=== PATIENT | female | born 1965 | race Caucasian/White ===

== ENCOUNTER 2023-10-24 11:00 | Observation (INO) | payer OTHER ==
--- OUTSIDE RECORDS SUMMARY | 2023-10-24 11:05 | XMS REPORT | Continuity of Care Document ---
Author Name Unknown Address [address] [facility] [address] [place] [address] [facility] Address [address] [facility] [address] [place] [address] Care Team Providers Care Chemistry Technologist Name Role Phone FREDDY JORDAN Attending Clinician Unav ailMARTA Hanks Attending Clinician Unavailable MARCELLA LOZANO Attending Clinician Unavailable FAUSTO LEROY Attending Clinician Unavailable CONFERENCE, LDC Attending Clinician Unavailable LAB90 Attending Clinician Unavailable Jessi Hopper MD Attending Clinician [phone] MD PAULINE Attending Clinician Unavailab BENJAMIN Finch Attending Clinician Unavailable THERESE GILBERT Attending Clinician Unava ilable PL, TECH 1 Attending Clinician Unavailable PLABPA Attending Clinician Unavailable Jessi Hopper MD Admitting Clinician [phone] Payers Payer Name Policy Type Policy Number Effective Date Expirati on Date Source [employer] [facility] [employer] [place] 94 [place] 9 [id number] 2023 00:00:00 Problems Condition Name Condition Details Condition Category Status Onset Date Resolution Date Last Treatment Date Treating Clinician Comments Source Mild major depression Mild major depression Disease Active 10-01 00:00: 00 Tammy oneill DM type 2 with diabetic mixed hyperlipid emia (multi HCC) DM type 2 with diabetic mixed hyperlipid emia (multi HCC) Disease Active 10-01 00:00: 00 Tammy oneill Chronic respirator y failure with hypoxia and hypercapni a (multi HCC) Chronic respirator y failure with hypoxia and hypercapni a (multi HCC) Disease Active 10-01 00:00: 00 Tammy Higgins - Externa nino COPD exacerbati on COPD exacerbati on Disease Active 2022-09 00:00: 00 [facility] Morbid obesity with body mass index of 40.0-49.9 Morbid obesity with body mass index of 40.0-49.9 Disease Active 2022-09 00:00: 00 [facility] Mild major depression Mild major depression Disease Active 05-08 00:00: 00 Tammy Higgins - Externa nino Chronic obstructiv e pulmonary disease with acute exacerbati on (multi HCC) Chronic obstructiv e pulmonary disease with acute exacerbati on (multi HCC) Disease Active 04-17 00:00: 00 Tammy Higgins - Externa nino Insomnia Insomnia Disease Active 04-17 00:00: 00 Tammy Higgins - Externa nino Mild major depression Mild major depression Disease Active 01-29 00:00: 00 Tammy Higgins - Externa nino Immunocomp romised state (multi HCC) Immunocomp romised state (multi HCC) Disease Active 12-05 00:00: 00 Tammy Chilelold - Externa l Neuropathy of both feet - Not Controlled Neuropathy of both feet - Not Controlled Disease Active 12-05 00:00: 00 Tammy Higgins - Externa nino Mixed hyperlipid emia Mixed hyperlipid emia Disease Active 12-04 00:00: 00 Tammy Higgins - Externa nino Hx of colonic polyps Hx of colonic polyps Disease Active 12-04 00:00: 00 Tammy Higgins - Externa nino Encounter for immunizati on Encounter for immunizati on Disease Active 12-04 00:00: 00 Tammy Higgins - Externa nino BMI 40.0-44.9, adult BMI 40.0-44.9, adult Disease Active 12-04 00:00: 00 Tammy Bain Externa nino Prediabete s Prediabete s Disease Active 3-21 00:00: 00 Tammy Bain Externa l Dysuria Dysuria Disease Active 2015-09 00:00: 00 [facility] Dyspareuni a in female Dyspareuni a in female Disease Active 2015-09 00:00: 00 [facility] Screen for STD (sexually transmitte d disease) Screen for STD (sexually transmitte d disease) Disease Active 2015-09 00:00: 00 [facility] Allergies, Adverse Reactions, Alerts Allergy Name Allergy Type Status Severity Reaction(s) Onset Date Inactive Date Treating Clinician Comments Source Penicill ins Propensi ty to adverse reaction s Active Anaphylaxis 05-07 00:00: 00 Other reaction( s): Other (See Comments) Tammy Bain Externa l Penicill ins Propensi ty to adverse reaction s Active Anaphylaxis 05-07 00:00: 00 [facility] PENICILL INS Drug Class Active Anaphylaxis 05-07 00:00: 00 [facility] Social History Social Habit Start Date Stop Date Quantity Comments Source Gender identity Elsa Higgins - External History of tobacco use Cigarette Smoker [facility] 2023-07-27 00:00:00 2023-07-27 00:00:00 0 /d [facility] History of Social function 2023-07-27 00:00:00 2023-07-27 00:00:00 [facility] Tobacco Comment 2023-07-27 00:00:00 2023-07-27 00:00:[address] [facility] Cigarettes smoked current (pack per day) - Reported 2022-12-10 00:00:00 2022-12-10 00:00:00 Tammy Higgins - External Tobacco use and exposure 2022-12-10 00:00:00 2022-12-10 00:00:00 Smokeless tobacco non-user Tammy Hgigins - External Cigarette pack-years 2022-12-10 00:00:00 2022-12-10 00:00:00 Tammy Higgins - External Sex Assigned At 1965 00:00:00 1965 00:00:00 [facility] Smoking Status Start Date Stop Date Source Occasional tobacco smoker 2023-07-27 00:00:00 [facility] Ex-smoker 2022-12-10 00:00:00 2022-12-10 00:00:00 Tammy Bueno Medications Ordered Medication Name Filled Medication Name Start Date Stop Date Current Medication? Ordering Clinician Indication Dosage Frequency Signature (SIG) Comments Components Source Esomeprazol e Magnesium 40 MG oral Delayed Release Capsule 10-11 10:27: 56 Yes 40mg Take 1 capsule (40 mg total) by mouth every morning (before breakfast) . Tammy oneill Montelukast (SINGULAIR) 10 MG oral Tablet tablet 10-11 10:27: 56 Yes every 24 hours Tammy oneill Acetaminoph en-Codeine 300-30 MG oral Tablet 10-11 00:00: 00 Yes [id number] 1{tbl} Q.25D Take 1 tablet by mouth every 6 hours as needed for pain. Tammy oneill Duloxetine HCl [address] Particles 10-11 00:00: 00 Yes [id number] 60mg Take 2 capsules (60 mg total) by mouth daily. Tammy oneill Trazodone HCl 100 MG oral Tablet 10-11 00:00: 00 Yes [id number] 100mg Take 1 tablet (100 mg total) by mouth nightly. Tammy oneill Zolpidem Tartrate 5 MG oral Tablet 10-11 00:00: 00 Yes [id number] 5mg QD Take 1 tablet (5 mg total) by mouth nightly as needed for sleep. Tammy oneill Acetaminoph en-Codeine 300-30 MG oral Tablet 09-27 00:00: 00 10-11 00:00 :00 No [id number] 1{tbl} Q.25D Take 1 tablet by mouth every 6 hours as needed for pain. Tammy oneill hydroCHLORO thiazide 12.5 MG oral Capsule 09-19 00:00: 00 Yes [id number] 12.5mg Take 1 capsule (12.5 mg total) by mouth daily. Tammy oneill Lisinopril 5 MG oral Tablet 09-19 00:00: 00 Yes [id number] 5mg Take 1 tablet (5 mg total) by mouth daily. Tammy oneill Zolpidem Tartrate 5 MG oral Tablet 09-19 00:00: 00 10-11 00:00 :00 No [id number] 5mg QD Take 1 tablet (5 mg total) by mouth nightly as needed for sleep. Tammy oneill predniSONE (DELTASONE) 10 MG oral tablet 2022-09 00:00: 00 10-11 00:00 :00 No [id number] 10mg Take 1 tablet (10 mg total) by mouth daily. Tammy oneill Ketorolac Tromethamin e 10 MG oral Tablet 2022-09 00:00: 00 Yes [id number] 10mg Q.25D Take 1 tablet (10 mg total) by mouth every 6 hours as needed for pain. Tammy oneill Esomeprazol e Magnesium 40 MG oral Delayed Release Capsule 2022-09 11:05: 48 Yes 40mg Take 1 capsule (40 mg total) by mouth every morning (before breakfast) . Tammy oneill Montelukast (SINGULAIR) 10 MG oral Tablet tablet 2022-09 11:05: 48 Yes every 24 hours Tammy oneill Doxycycline Hyclate 100 MG oral Capsule 2022-09 00:00: 00 09-06 05:59 :00 Yes [id number] 100mg Take 1 capsule (100 mg total) by mouth 2 times daily for 7 days. Tammy oneill OZEMPIC (0.25 or 0.5 mg/dose) 2 mg/3 mL SQ Solution Pen-Injecto r 2022-09 00:00: 00 10-19 05:59 :00 Yes [id number] 3 .5mg Inject 0.5 mg into the skin once a week. Tammy oneill OZEMPIC (0.25 or 0.5 mg/dose) 2 mg/3 mL SQ Solution Pen-Injecto r 2022-09 00:00: 00 10-19 05:59 :00 Yes [id number] 3 .5mg Inject 0.5 mg into the skin once a week. Tammy oneill hydroCHLORO thiazide 25 MG oral Tablet 2022-09 11:19: 34 08-22 00:00 :00 No 25mg Take 1 tablet (25 mg total) by mouth every morning. Tammy oneill Esomeprazol e Magnesium 40 MG oral Delayed Release Capsule 2022-09 10:51: 41 Yes 40mg Take 1 capsule (40 mg total) by mouth every morning (before breakfast) . Tammy oneill Montelukast (SINGULAIR) 10 MG oral Tablet tablet 2022-09 10:51: 41 Yes every 24 hours Tammy oneill Duloxetine HCl [address] Particles 2022-09 00:00: 00 Yes [id number] 60mg Take 2 capsules (60 mg total) by mouth daily. Tammy oneill Gabapentin 600 MG oral Tablet 2022-09 00:00: 00 Yes [id number] 600mg Take 1 tablet (600 mg total) by mouth 3 times daily. Tammy oneill Metformin HCl 500 MG oral Tablet 2022-09 00:00: 00 Yes [id number] 3 500mg Take 1 tablet (500 mg total) by mouth daily (with breakfast) . Tammy oneill Ondansetron (ZOFRAN) 4 MG oral TABLET DISPERSIBLE 2022-09 00:00: 00 Yes [id number] 4mg Q.[id number] 3D Take 1 tablet (4 mg total) by mouth every 8 hours as needed for nausea. Tammy oneill Promethazin e HCl (PHENERGAN) 25 MG oral Tablet 2022-09 00:00: 00 Yes [id number] 25mg Q.25D Take 1 tablet (25 mg total) by mouth every 6 hours as needed. Tammy oneill Pseudoeph-B romphen-DM 30-2-10 MG/5ML oral Syrup 2022-09 00:00: 00 Yes [id number] 10mL Q.[id number] 3D Take 10 mL by mouth 3 times daily as needed TAKE 10 ML BY MOUTH 3 TIMES A DAY NEEDED. Tammy oneill Lisinopril 5 MG oral Tablet 2022-09 00:00: 00 Yes [id number] 5mg Take 1 tablet (5 mg total) by mouth daily. Tammy oneill hydroCHLORO thiazide 12.5 MG oral Capsule 2022-09 00:00: 00 Yes [id number] 12.5mg Take 1 capsule (12.5 mg total) by mouth daily. Tammy oneill Acetaminoph en-Codeine 300-30 MG oral Tablet 2022-09 00:00: 00 Yes [id number] 1{tbl} Q4H Take 1 tablet by mouth every 4 hours as needed for pain. Tammy oneill Dulaglutide (Trulicity) 1.5 MG/0.5ML subcutaneou s Solution Pen-injecto r 2022-09 00:00: 00 Yes [id number] 3 1.5mg Inject 1.5 mg into the skin once a week. Tammy oneill Duloxetine HCl [address] Particles 2022-09 00:00: 00 Yes [id number] 60mg Take 2 capsules (60 mg total) by mouth daily. Tammy oneill Gabapentin 600 MG oral Tablet 2022-09 00:00: 00 Yes [id number] 600mg Take 1 tablet (600 mg total) by mouth 3 times daily. Tammy oneill Metformin HCl 500 MG oral Tablet 2022-09 00:00: 00 Yes [id number] 3 500mg Take 1 tablet (500 mg total) by mouth daily (with breakfast) . Tammy oneill Ondansetron (ZOFRAN) 4 MG oral TABLET DISPERSIBLE 2022-09 00:00: 00 Yes [id number] 4mg Q.[id number] 3D Take 1 tablet (4 mg total) by mouth every 8 hours as needed for nausea. Tammy oneill Promethazin e HCl (PHENERGAN) 25 MG oral Tablet 2022-09 00:00: 00 Yes [id number] 25mg Q.25D Take 1 tablet (25 mg total) by mouth every 6 hours as needed. Tammy oneill Pseudoeph-B romphen-DM 30-2-10 MG/5ML oral Syrup 2022-09 00:00: 00 Yes [id number] 10mL Q.[id number] 3D Take 10 mL by mouth 3 times daily as needed TAKE 10 ML BY MOUTH 3 TIMES A DAY NEEDED. Tammy oneill Lisinopril 5 MG oral Tablet 2022-09 00:00: 00 Yes [id number] 5mg Take 1 tablet (5 mg total) by mouth daily. Tammy oneill hydroCHLORO thiazide 12.5 MG oral Capsule 2022-09 00:00: 00 Yes [id number] 12.5mg Take 1 capsule (12.5 mg total) by mouth daily. Tammy oneill Acetaminoph en-Codeine 300-30 MG oral Tablet 2022-09 00:00: 00 Yes [id number] 1{tbl} Q4H Take 1 tablet by mouth every 4 hours as needed for pain. Tammy oneill Dulaglutide (Trulicity) 1.5 MG/0.5ML subcutaneou s Solution Pen-injecto r 2022-09 00:00: 00 Yes [id number] 3 1.5mg Inject 1.5 mg into the skin once a week. Tammy oneill Gabapentin 600 MG oral Tablet 2022-09 00:00: 00 Yes [id number] 600mg Take 1 tablet (600 mg total) by mouth 3 times daily. Tammy oneill Metformin HCl 500 MG oral Tablet 2022-09 00:00: 00 Yes [id number] 3 500mg Take 1 tablet (500 mg total) by mouth daily (with breakfast) . Tammy oneill Ondansetron (ZOFRAN) 4 MG oral TABLET DISPERSIBLE 2022-09 00:00: 00 Yes [id number] 4mg Q.10286566 [id number] 3D Take 1 tablet (4 mg total) by mouth every 8 hours as needed for nausea. Tammy oneill Promethazin e HCl (PHENERGAN) 25 MG oral Tablet 2022-09 00:00: 00 Yes [id number] 25mg Q.25D Take 1 tablet (25 mg total) by mouth every 6 hours as needed. Tammy oneill Dulaglutide (Trulicity) 1.5 MG/0.5ML subcutaneou s Solution Pen-injecto r 2022-09 00:00: 00 Yes [id number] 3 1.5mg Inject 1.5 mg into the skin once a week. Tammy oneill Albuterol HFA (VENTOLIN HFA) 108 (90 Base) MCG/ACT IN AERS 2022-09 00:00: 00 11-20 05:59 :00 Yes [id number] 3{puff} Inhale 3 puffs into the lungs every 4 to 6 hours as needed for wheezing or shortness of breath. Tammy oneill Fluticasone -Umeclidin- Vilant (Trelegy Ellipta) 200-62.5-25 MCG/ACT inhalation AEROSOL POWDER, BREATH ACTIVATED 2022-09 00:00: 00 11-20 05:59 :00 Yes [id number] 1{puff} Inhale 1 puff into the lungs daily. Tammy oneill Albuterol HFA (VENTOLIN HFA) 108 (90 Base) MCG/ACT IN AERS 2022-09 00:00: 00 11-20 05:59 :00 Yes [id number] 3{puff} Inhale 3 puffs into the lungs every 4 to 6 hours as needed for wheezing or shortness of breath. Tammy Seybold - Externa l Fluticasone -Umeclidin- Vilant (Trelegy Ellipta) 200-62.5-25 MCG/ACT inhalation AEROSOL POWDER, BREATH ACTIVATED 2022-09 00:00: 00 11-20 05:59 :00 Yes [id number] 1{puff} Inhale 1 puff into the lungs daily. Tammy oneill Albuterol HFA (VENTOLIN HFA) 108 (90 Base) MCG/ACT IN AERS 2022-09 00:00: 00 11-20 05:59 :00 Yes [id number] 3{puff} Inhale 3 puffs into the lungs every 4 to 6 hours as needed for wheezing or shortness of breath. Tammy oneill Fluticasone -Umeclidin- Vilant (Trelegy Ellipta) 200-62.5-25 MCG/ACT inhalation AEROSOL POWDER, BREATH ACTIVATED 2022-09 00:00: 00 11-20 05:59 :00 Yes [id number] 1{puff} Inhale 1 puff into the lungs daily. Tammy oneill OZEMPIC (0.25 or 0.5 mg/dose) 2 mg/3 mL SQ Solution Pen-Injecto r 2022-09 00:00: 00 10-18 05:59 :00 Yes [id number] 3 .5mg Inject 0.5 mg into the skin once a week. Tammy oneill Duloxetine HCl [address] Particles 2022-09 00:00: 00 10-11 00:00 :00 No [id number] 60mg Take 2 capsules (60 mg total) by mouth daily. Tammy oneill Pseudoeph-B romphen-DM 30-2-10 MG/5ML oral Syrup 2022-09 00:00: 00 10-11 00:00 :00 No [id number] 10mL Q.39768801 [id number] 3D Take 10 mL by mouth 3 times daily as needed TAKE 10 ML BY MOUTH 3 TIMES A DAY NEEDED. Tammy oneill Dulaglutide (Trulicity) 1.5 MG/0.5ML subcutaneou s Solution Pen-injecto r 2022-09 00:00: 00 08-22 00:00 :00 No [id number] 3 1.5mg Inject 1.5 mg into the skin once a week. Tammy oneill Dulaglutide (Trulicity) 1.5 MG/0.5ML subcutaneou s Solution Pen-injecto r 2022-09 00:00: 00 08-22 00:00 :00 No [id number] 3 1.5mg Inject 1.5 mg into the skin once a week. Tammy oneill Zolpidem Tartrate 5 MG oral Tablet 2022-09 00:00: 00 Yes [id number] 5mg QD Take 1 tablet (5 mg total) by mouth nightly as needed for sleep. Tammy oneill Zolpidem Tartrate 5 MG oral Tablet 2022-09 00:00: 00 Yes [id number] 5mg QD Take 1 tablet (5 mg total) by mouth nightly as needed for sleep. Tammy oneill Promethazin e HCl (PHENERGAN) 25 MG oral Tablet 2022-09 00:00: 00 08-22 00:00 :00 No [id number] 25mg Q.25D Take 1 tablet (25 mg total) by mouth every 6 hours as needed. Tammy oneill enoxaparin (LOVENOX) injection 40 mg 2022-09 15:00: 00 Yes 40mg 40 mg, Subcutaneo us, DAILY, First dose on 07/27/23 at 0900, Until Discontinu ed, Routine [facility] DULoxetine (CYMBALTA) capsule 60 mg 2022-09 15:00: 00 Yes 60mg 60 mg, Oral, DAILY, First dose on 07/27/23 at 0900, Until Discontinu ed, Routine [facility] azithromyci n (ZITHROMAX) tablet 500 mg 2022-09 15:00: 00 2023- 11-14 14:59 :00 Yes 500mg 500 mg, Oral, DAILY, 3 doses, First dose on 07/27/23 at 0900, Last dose on 07/29/23 at 0900, JAGDISH
Re ason for Anti-Infec tive: Empiric Therapy for Suspected Infection< br>Empiric Therapy Site: Respirator y
Durat ion of therapy: 72 hours [facility] albuterol (VENTOLIN) 90 mcg/actuati on inhaler 2022-09 12:04: 01 07-27 00:00 :00 No 2{puff} Inhale 2 Puffs every 6 (six) hours as needed for Wheezing or Shortness of Breath. [facility] SULFAMETHOX AZOLE/TRIME THOPRIM (BACTRIM ORAL) 2022-09 12:04: 01 07-27 00:00 :00 No Take by mouth. [facility] MEPERIDINE HCL (DEMEROL ORAL) 2022-09 12:04: 01 07-27 00:00 :00 No Take by mouth. [facility] DICLOFENAC SODIUM ORAL 2022-09 12:04: 00 07-27 00:00 :00 No 75mg Take 75 mg by mouth. [facility] benzonatate (TESSALON PERLES) 100 mg capsule 2022-09 12:04: 00 07-27 00:00 :00 No 100mg Take 100 mg by mouth. [facility] HYDROCODONE /ACETAMINOP HEN (NORCO ORAL) 2022-09 12:04: 00 07-27 00:00 :00 No Take by mouth. [facility] ondansetron 8 mg tablet 2022-09 12:04: 00 07-27 00:00 :00 No 8mg Take 1 tablet by mouth in the morning and 1 tablet at noon and 1 tablet in the evening. [facility] montelukast 10 mg tablet 2022-09 12:04: 00 07-27 00:00 :00 No every 24 hours [facility] methylpredn isolone sod succ (SOLU-MEDRO L) injection 60 mg 2022-09 12:00: 00 Yes 60mg 60 mg, Intravenou s, Q8H, First dose (after last modificati on) on 07/27/23 at 0600, Until Discontinu ed, 2 mL [facility] ipratropium -albuteroL (DUONEB) 0.5 mg-3 mg(2.5 mg base)/3 mL nebulizer solution 3 mL 2022-09 10:45: 00 Yes 3mL 3 mL, Inhalation , Q4H, First dose on 07/27/23 at 0445, Until Discontinu ed, Routine [facility] Trazodone HCl 100 MG oral Tablet 2022-09 00:00: 00 Yes [id number] 100mg Take 1 tablet (100 mg total) by mouth nightly. Tammy oneill Trazodone HCl 100 MG oral Tablet 2022-09 00:00: 00 Yes [id number] 100mg Take 1 tablet (100 mg total) by mouth nightly. Tammy oneill Trazodone HCl 100 MG oral Tablet 2022-09 00:00: 00 10-11 00:00 :00 No [id number] 100mg Take 1 tablet (100 mg total) by mouth nightly. Tammy oneill Gabapentin 600 MG oral Tablet 2022-09 00:00: 00 08-22 00:00 :00 No [id number] 600mg Take 1 tablet (600 mg total) by mouth 3 times daily. Tammy oneill Duloxetine HCl [address] Particles 2022-09 0 00:00: 00 08-22 00:00 :00 No [id number] 60mg Take 2 capsules (60 mg total) by mouth daily. Tammy oneill gabapentin 600 mg tablet 2022-09 00:00: 00 07-27 00:00 :00 No 600mg Take 1 tablet by mouth. [facility] DULoxetine 30 mg capsule 2022-09 00:00: 07-27 00:00 :00 No 60mg Take 2 capsules by mouth. [facility] traZODone 100 mg tablet 2022-09 00:00: 00 07-27 00:00 :00 No 100mg Take 1 tablet by mouth. [facility] Trulicity 1.5 MG/0.5ML subcutaneou s Solution Pen-injecto r 2022-09 00:00: 00 08-22 00:00 :00 No [id number] 3 1.5mg Inject 1.5 mg into the skin once a week. Tammy oneill dulaglutide (TRULICITY) 1.5 mg/0.5 mL PnIj 2022-09 00:00: 00 07-27 00:00 :00 No 1.5mg inject 1 Pen under the skin. [facility] Acetaminoph en-Codeine 300-30 MG oral Tablet 06-04 00:00: 00 08-22 00:00 :00 No [id number] 1{tbl} Q4H TAKE 1 TABLET BY MOUTH EVERY 4 HOURS NEEDED FOR PAIN Tammy oneill proMETHazin e 25 mg tablet 06-03 00:00: 00 07-27 00:00 :00 No 25mg Take 1 tablet by mouth. [facility] predniSONE (DELTASONE) 20 MG oral tablet 05-22 00:00: 00 Yes [id number] TAKE 2 TABLETS BY MOUTH DAILY FOR 10 DAYS Tammy oneill predniSONE (DELTASONE) 20 MG oral tablet 05-22 00:00: 00 Yes [id number] TAKE 2 TABLETS BY MOUTH DAILY FOR 10 DAYS Tammy oneill predniSONE 20 mg tablet 05-22 00:00: 00 07-27 00:00 :00 No TAKE 2 TABLETS BY MOUTH DAILY FOR 10 DAYS [facility] Ondansetron (ZOFRAN) 4 MG oral TABLET DISPERSIBLE 05-21 00:00: 00 08-22 00:00 :00 No [id number] 4mg Q.59199062 [id number] 3D Take 1 tablet (4 mg total) by mouth every 8 hours as needed for nausea. Tammy oneill Esomeprazol e Magnesium 40 MG oral Delayed Release Capsule 05-13 09:21: 32 Yes 40mg Take 1 capsule (40 mg total) by mouth every morning (before breakfast) . Tammy oneill hydroCHLORO thiazide 25 MG oral Tablet 05-13 09:21: 32 Yes 25mg Take 1 tablet (25 mg total) by mouth every morning. Tammy oneill Montelukast (SINGULAIR) 10 MG oral Tablet tablet 05-13 09:21: 32 Yes every 24 hours Tammy oneill Esomeprazol e Magnesium 40 MG oral Delayed Release Capsule 05-13 09:21: 32 Yes 40mg Take 1 capsule (40 mg total) by mouth every morning (before breakfast) . Tammy oneill hydroCHLORO thiazide 25 MG oral Tablet 05-13 09:21: 32 Yes 25mg Take 1 tablet (25 mg total) by mouth every morning. Tammy oneill Montelukast (SINGULAIR) 10 MG oral Tablet tablet 05-13 09:21: 32 Yes every 24 hours Tmamy oneill HYDROcodone -Acetaminop hen 10-325 MG oral Tablet 05-08 16:41: 18 05-08 00:00 :00 No 1{tbl} Take 1 tablet by mouth. Tammy oneill Acetaminoph en-Codeine 300-30 MG oral Tablet 05-08 00:00: 00 Yes [id number] 1{tbl} Q4H Take 1 tablet by mouth every 4 hours as needed for pain. Tammy oneill Promethazin e HCl (PHENERGAN) 25 MG oral Tablet 05-08 00:00: 00 Yes [id number] 25mg Q.25D Take 1 tablet (25 mg total) by mouth every 6 hours as needed. Tammy oneill Ondansetron (ZOFRAN) 4 MG oral TABLET DISPERSIBLE 05-08 00:00: 00 Yes [id number] 4mg Q.[id number] 3D Take 1 tablet (4 mg total) by mouth every 8 hours as needed for nausea. Tammy oneill Zolpidem Tartrate 5 MG oral Tablet 05-08 00:00: 00 Yes [id number] 5mg QD Take 1 tablet (5 mg total) by mouth nightly as needed for sleep. Tammy oneill Dulaglutide (Trulicity) 0.75 MG/0.5ML subcutaneou s Solution Pen-injecto r 05-08 00:00: 00 Yes [id number] 3 .75mg Inject 0.75 mg into the skin once a week. Tammy oneill Acetaminoph en-Codeine 300-30 MG oral Tablet 05-08 00:00: 00 Yes [id number] 1{tbl} Q4H Take 1 tablet by mouth every 4 hours as needed for pain. Tammy oneill Promethazin e HCl (PHENERGAN) 25 MG oral Tablet 05-08 00:00: 00 Yes [id number] 25mg Q.25D Take 1 tablet (25 mg total) by mouth every 6 hours as needed. Tammy oneill Ondansetron (ZOFRAN) 4 MG oral TABLET DISPERSIBLE 05-08 00:00: 00 Yes [id number] 4mg Q.24056339 [id number] 3D Take 1 tablet (4 mg total) by mouth every 8 hours as needed for nausea. Tammy oneill Zolpidem Tartrate 5 MG oral Tablet 05-08 00:00: 00 Yes [id number] 5mg QD Take 1 tablet (5 mg total) by mouth nightly as needed for sleep. Tammy oneill Dulaglutide (Trulicity) 0.75 MG/0.5ML subcutaneou s Solution Pen-injecto r 05-08 00:00: 00 Yes [id number] 3 .75mg Inject 0.75 mg into the skin once a week. Tammy oneill Pseudoeph-B romphen-DM 30-2-10 MG/5ML oral Syrup 04-23 00:00: 00 Yes [id number] 10mL Q.72876403 [id number] 3D Take 10 mL by mouth 3 times daily as needed TAKE 10 ML BY MOUTH 3 TIMES A DAY NEEDED Tammy oneill Pseudoeph-B romphen-DM 30-2-10 MG/5ML oral Syrup 04-23 00:00: 00 Yes [id number] 10mL Q.75127249 [id number] 3D Take 10 mL by mouth 3 times daily as needed TAKE 10 ML BY MOUTH 3 TIMES A DAY NEEDED Tammy oneill Pseudoeph-B romphen-DM 30-2-10 MG/5ML oral Syrup 04-23 00:00: 00 08-22 00:00 :00 No [id number] 10mL Q.31547998 [id number] 3D Take 10 mL by mouth 3 times daily as needed TAKE 10 ML BY MOUTH 3 TIMES A DAY NEEDED Tammy oneill Promethazin e HCl (PHENERGAN) 25 MG oral Tablet 04-23 00:00: 00 05-08 00:00 :00 No [id number] 25mg Q.25D Take 1 tablet (25 mg total) by mouth every 6 hours as needed Tammy oneill predniSONE (DELTASONE) 10 MG oral tablet 04-09 00:00: 00 Yes [id number] TAKE 1 TABLET BY MOUTH EVERY DAY Tammy oneill predniSONE (DELTASONE) 10 MG oral tablet 04-09 00:00: 00 Yes [id number] TAKE 1 TABLET BY MOUTH EVERY DAY Tammy Huertaa nino predniSONE (DELTASONE) 10 MG oral tablet 04-09 00:00: 00 Yes [id number] TAKE 1 TABLET BY MOUTH EVERY DAY Tammy oneill predniSONE (DELTASONE) 10 MG oral tablet 04-09 00:00: 00 Yes [id number] TAKE 1 TABLET BY MOUTH EVERY DAY Tammy oneill predniSONE (DELTASONE) 10 MG oral tablet 04-09 00:00: 00 Yes [id number] TAKE 1 TABLET BY MOUTH EVERY DAY Tammy oneill Lemborexant 10 MG oral Tablet 04-09 00:00: 00 05-08 00:00 :00 No [id number] 1{tbl} Take 1 tablet by mouth every night at bedtime Tammy oneill Trazodone HCl 100 MG oral Tablet 04-08 00:00: 00 Yes [id number] 100mg Take 1 tablet (100 mg total) by mouth nightly Tammy oneill Duloxetine HCl [address] Particles 04-08 00:00: 00 Yes [id number] 60mg Take 2 capsules (60 mg total) by mouth daily Tammy oneill Trazodone HCl 100 MG oral Tablet 04-08 00:00: 00 Yes [id number] 100mg Take 1 tablet (100 mg total) by mouth nightly Tammy oneill Duloxetine HCl [address] Particles 04-08 00:00: 00 Yes [id number] 60mg Take 2 capsules (60 mg total) by mouth daily Tammy oneill Zolpidem Tartrate 5 MG oral Tablet 03-01 00:00: 00 05-08 00:00 :00 No [id number] 5mg QD Take 1 tablet (5 mg total) by mouth nightly as needed for sleep Tammy oneill Esomeprazol e Magnesium 40 MG oral Delayed Release Capsule 01-29 10:07: 42 Yes 40mg Take 1 capsule (40 mg total) by mouth every morning (before breakfast) Tammy oneill HYDROcodone -Acetaminop hen 10-325 MG oral Tablet 01-29 10:07: 42 Yes 1{tbl} Take 1 tablet by mouth Tammy oneill hydroCHLORO thiazide 25 MG oral Tablet 01-29 10:07: 42 Yes 25mg Take 1 tablet (25 mg total) by mouth every morning Tammy oneill Montelukast (SINGULAIR) 10 MG oral Tablet tablet 01-29 10:07: 42 Yes every 24 hours Tammy oneill Zolpidem Tartrate 5 MG oral Tablet 01-29 00:00: 00 Yes [id number] 5mg QD Take 1 tablet (5 mg total) by mouth nightly as needed for sleep Tammy oneill Trulicity 0.75 MG/0.5ML subcutaneou s Solution Pen-injecto r 01-29 00:00: 00 Yes [id number] .75mg Inject 0.75 mg into the skin once a week Tammy oneill Gabapentin 600 MG oral Tablet 01-29 00:00: 00 Yes [id number] 600mg Take 1 tablet (600 mg total) by mouth 3 times daily Tammy oneill Promethazin e HCl (PHENERGAN) 25 MG oral Tablet 01-29 00:00: 00 Yes [id number] 25mg Q.25D Take 1 tablet (25 mg total) by mouth every 6 hours as needed Tammy oneill Pseudoeph-B romphen-DM 30-2-10 MG/5ML oral Syrup 01-29 00:00: 00 Yes [id number] 10mL Q.[id number] 3D Take 10 mL by mouth 3 times daily as needed TAKE 10 ML BY MOUTH 3 TIMES A DAY NEEDED Tammy oneill Metformin HCl 500 MG oral Tablet 01-29 00:00: 00 Yes [id number] 500mg Take 1 tablet (500 mg total) by mouth daily (with breakfast) Tammy oneill Lemborexant 10 MG oral Tablet 01-29 00:00: 00 Yes [id number] 1{tbl} Take 1 tablet by mouth every night at bedtime Tammy oneill Gabapentin 600 MG oral Tablet 01-29 00:00: 00 Yes [id number] 600mg Take 1 tablet (600 mg total) by mouth 3 times daily Tammy oneill Metformin HCl 500 MG oral Tablet 01-29 00:00: 00 Yes [id number] 500mg Take 1 tablet (500 mg total) by mouth daily (with breakfast) Tammy oneill Gabapentin 600 MG oral Tablet 01-29 00:00: 00 Yes [id number] 600mg Take 1 tablet (600 mg total) by mouth 3 times daily Tammy oneill Metformin HCl 500 MG oral Tablet 01-29 00:00: 00 Yes [id number] 500mg Take 1 tablet (500 mg total) by mouth daily (with breakfast) Tammy oneill Metformin HCl 500 MG oral Tablet 01-29 00:00: 00 08-22 00:00 :00 No [id number] 500mg Take 1 tablet (500 mg total) by mouth daily (with breakfast) Tammy oneill metFORMIN 500 mg tablet 01-29 00:00: 00 07-27 00:00 :00 No 500mg Take 1 tablet by mouth. [facility] Trulicity 0.75 MG/0.5ML subcutaneou s Solution Pen-injecto r 01-29 00:00: 00 05-08 00:00 :00 No [id number] .75mg Inject 0.75 mg into the skin once a week Tammy oneill Trazodone HCl 100 MG oral Tablet 01-29 00:00: 00 01-31 00:00 :00 No [id number] 100mg Take 1 tablet (100 mg total) by mouth nightly Tammy oneill Duloxetine HCl [address] Particles 01-29 00:00: 00 01-31 00:00 :00 No [id number] 30mg Take 1 capsule (30 mg total) by mouth daily Tammy oneill Metformin HCl 500 MG oral Tablet 01-29 00:00: 00 01-29 00:00 :00 No [id number] 500mg Take 1 tablet (500 mg total) by mouth daily (with breakfast) Tammy oneill Lemborexant 10 MG oral Tablet 01-29 00:00: 00 01-29 00:00 :00 No [id number] 1{tbl} Take 1 tablet by mouth every night at bedtime Tammy oneill Trazodone HCl 50 MG oral Tablet 01-18 00:00: 00 01-29 00:00 :00 No [id number] TAKE 1 TABLET BY MOUTH EVERY DAY AT NIGHT Tammy oneill Esomeprazol e Magnesium 40 MG oral Delayed Release Capsule 01-07 09:14: 45 Yes 40mg Take 1 capsule (40 mg total) by mouth every morning (before breakfast) Tammy oneill HYDROcodone -Acetaminop hen 10-325 MG oral Tablet 01-07 09:14: 45 Yes 1{tbl} Take 1 tablet by mouth Tammy oneill hydroCHLORO thiazide 25 MG oral Tablet 01-07 09:14: 45 Yes 25mg Take 1 tablet (25 mg total) by mouth every morning Tammy oneill Montelukast (SINGULAIR) 10 MG oral Tablet tablet 01-07 09:14: 45 Yes every 24 hours Tammy oneill predniSONE (DELTASONE) 10 MG oral tablet 01-07 00:00: 00 Yes [id number] 10mg Take 1 tablet (10 mg total) by mouth daily Tammy oneill predniSONE (DELTASONE) 10 MG oral tablet 01-07 00:00: 00 Yes [id number] 10mg Take 1 tablet (10 mg total) by mouth daily Tammy oneill Fluticasone -Umeclidin- Vilant (Trelegy Ellipta) 200-62.5-25 MCG/ACT inhalation AEROSOL POWDER, BREATH ACTIVATED 01-07 00:00: 00 Yes [id number] 1{puff} Inhale 1 puff into the lungs daily Tammy Seybold - Externa l Albuterol HFA (VENTOLIN HFA) 108 (90 Base) MCG/ACT IN AERS 01-07 00:00: 00 Yes [id number] 3{puff} Inhale 3 puffs into the lungs every 4 to 6 hours as needed for wheezing or shortness of breath Tammy Bain Externa l Fluticasone -Umeclidin- Vilant (Trelegy Ellipta) 200-62.5-25 MCG/ACT inhalation AEROSOL POWDER, BREATH ACTIVATED 01-07 00:00: 00 Yes [id number] 1{puff} Inhale 1 puff into the lungs daily Tammy Higgins - Externa l Albuterol HFA (VENTOLIN HFA) 108 (90 Base) MCG/ACT IN AERS 01-07 00:00: 00 Yes [id number] 3{puff} Inhale 3 puffs into the lungs every 4 to 6 hours as needed for wheezing or shortness of breath Tammy Bain Externa l Fluticasone -Umeclidin- Vilant (Trelegy Ellipta) 200-62.5-25 MCG/ACT inhalation AEROSOL POWDER, BREATH ACTIVATED 01-07 00:00: 00 08-22 00:00 :00 No [id number] 1{puff} Inhale 1 puff into the lungs daily Tammy Bain Externa l Albuterol HFA (VENTOLIN HFA) 108 (90 Base) MCG/ACT IN AERS 01-07 00:00: 00 08-22 00:00 :00 No [id number] 3{puff} Inhale 3 puffs into the lungs every 4 to 6 hours as needed for wheezing or shortness of breath Tammy Higgins - Externa l fluticasone -umeclidin- vilanter (TRELEGY ELLIPTA) 200-62.5-25 mcg DsDv 01-07 00:00: 00 07-27 00:00 :00 No 1{puff} Inhale 1 Puff. [facility] Albuterol HFA (VENTOLIN HFA) 108 (90 Base) MCG/ACT IN AERS 01-07 00:00: 04-08 04:59 :00 No [id number] 2{puff} Inhale 2 puffs into the lungs every 4 to 6 hours as needed for wheezing Tammy oneill Fluticasone -Umeclidin- Vilant (Trelegy Ellipta) 200-62.5-25 MCG/ACT inhalation AEROSOL POWDER, BREATH ACTIVATED 01-07 00:00: 00 04-08 04:59 :00 No [id number] 1{puff} Inhale 1 puff into the lungs daily Tammy oneill Fluticasone -Umeclidin- Vilant (Trelegy Ellipta) 200-62.5-25 MCG/ACT inhalation AEROSOL POWDER, BREATH ACTIVATED 01-07 00:00: 00 04-08 04:59 :00 No [id number] 1{puff} Inhale 1 puff into the lungs daily Tammy oneill Albuterol HFA (VENTOLIN HFA) 108 (90 Base) MCG/ACT IN AERS 01-07 00:00: 04-08 04:59 :00 No [id number] 3{puff} Inhale 3 puffs into the lungs every 4 to 6 hours as needed for wheezing or shortness of breath Tammy oneill Pseudoeph-B romphen-DM 30-2-10 MG/5ML oral Syrup 01-07 00:00: 00 01-29 00:00 :00 No [id number] 10mL Q.[id number] 3D Take 10 mL by mouth 3 times daily as needed TAKE 10 ML BY MOUTH 3 TIMES A DAY NEEDED Tammy oneill predniSONE (DELTASONE) 20 MG oral tablet 01-07 00:00: 00 01-18 04:59 :00 No [id number] 40mg Take 2 tablets (40 mg total) by mouth daily for 10 days Tammy oneill Pseudoeph-B romphen-DM 30-2-10 MG/5ML oral Syrup 01-07 00:00: 00 01-07 00:00 :00 No [id number] 2.5mL Q.[id number] 3D Take 2.5 mL by mouth 3 times daily as needed TAKE 10 ML BY MOUTH 3 TIMES A DAY NEEDED Tammy oneill HYDROcodone -Acetaminop hen 10-325 MG oral Tablet 01-01 09:18: 46 Yes 1{tbl} Take 1 tablet by mouth Tammy oneill Esomeprazol e Magnesium 40 MG oral Delayed Release Capsule 01-01 09:13: 15 Yes 40mg Take 1 capsule (40 mg total) by mouth every morning (before breakfast) Tammy oneill hydroCHLORO thiazide 25 MG oral Tablet 01-01 09:13: 15 Yes 25mg Take 1 tablet (25 mg total) by mouth every morning Tammy oneill Montelukast (SINGULAIR) 10 MG oral Tablet tablet 01-01 09:13: 15 Yes every 24 hours Tammy oneill Albuterol HFA (VENTOLIN HFA) 108 (90 Base) MCG/ACT IN AERS 01-01 00:00: 00 Yes [id number] 2{puff} Q.25D Inhale 2 puffs into the lungs every 6 hours as needed for wheezing Tammy oneill Suvorexant (Belsomra) 20 MG oral Tablet 01-01 00:00: 00 Yes [id number] 1{tbl} Take 1 tablet by mouth nightly Tammy oneill Zolpidem Tartrate 5 MG oral Tablet 01-01 00:00: 00 Yes [id number] 5mg QD Take 1 tablet (5 mg total) by mouth nightly as needed for sleep Tammy oneill Gabapentin 600 MG oral Tablet 01-01 00:00: 00 Yes [id number] 600mg Q.5D Take 1 tablet (600 mg total) by mouth 2 times daily as needed Tammy oneill Suvorexant (Belsomra) 20 MG oral Tablet 01-01 00:00: 00 Yes [id number] 1{tbl} Take 1 tablet by mouth nightly Tammy oneill Zolpidem Tartrate 5 MG oral Tablet 01-01 00:00: 00 Yes [id number] 5mg QD Take 1 tablet (5 mg total) by mouth nightly as needed for sleep Tammy oneill Gabapentin 600 MG oral Tablet 01-01 00:00: 00 Yes [id number] 600mg Q.5D Take 1 tablet (600 mg total) by mouth 2 times daily as needed Tammy Esteskikayomi Bain Sandra oneill Fluticasone -Umeclidin- Vilant (Trelegy Ellipta) 200-62.5-25 MCG/ACT inhalation AEROSOL POWDER, BREATH ACTIVATED 01-01 00:00: 00 04-02 04:59 :00 No [id number] 1{puff} Inhale 1 puff into the lungs daily Tammy oneill Suvorexant (Belsomra) 20 MG oral Tablet 01-01 00:00: 00 01-29 00:00 :00 No [id number] 1{tbl} Take 1 tablet by mouth nightly Tammy Esteskikayomi oneill Zolpidem Tartrate 5 MG oral Tablet 01-01 00:00: 00 01-29 00:00 :00 No [id number] 5mg QD Take 1 tablet (5 mg total) by mouth nightly as needed for sleep Tammy Esteskikayomi Flores nino Gabapentin 600 MG oral Tablet 01-01 00:00: 00 01-29 00:00 :00 No [id number] 600mg Q.5D Take 1 tablet (600 mg total) by mouth 2 times daily as needed Tammy oneill Fluticasone -Umeclidin- Vilant (Trelegy Ellipta) 200-62.5-25 MCG/ACT inhalation AEROSOL POWDER, BREATH ACTIVATED 01-01 00:00: 00 01-07 00:00 :00 No [id number] 1{puff} Inhale 1 puff into the lungs daily Tammy oneill Albuterol HFA (VENTOLIN HFA) 108 (90 Base) MCG/ACT IN AERS 01-01 00:00: 01-07 00:00 :00 No [id number] 2{puff} Q.25D Inhale 2 puffs into the lungs every 6 hours as needed for wheezing Tammy oneill Pseudoeph-B romphen-DM 30-2-10 MG/5ML oral Syrup 12-21 00:00: 00 Yes [id number] 2.5mL Q.[id number] 3D Take 2.5 mL by mouth 3 times daily as needed TAKE 10 ML BY MOUTH 3 TIMES A DAY NEEDED Tammy oneill Pseudoeph-Shandra romphen-DM 30-2-10 MG/5ML oral Syrup 12-21 00:00: 00 01-07 00:00 :00 No [id number] 2.5mL Q.[id number] 3D Take 2.5 mL by mouth 3 times daily as needed TAKE 10 ML BY MOUTH 3 TIMES A DAY NEEDED Tammy oneill Promethazin e HCl (PHENERGAN) 25 MG oral Tablet 12-20 00:00: 00 Yes [id number] 25mg Q.25D Take 1 tablet (25 mg total) by mouth every 6 hours as needed Tammy oneill Trazodone HCl 50 MG oral Tablet 12-20 00:00: 00 Yes [id number] 50mg Take 1 tablet (50 mg total) by mouth nightly Tammy oneill Promethazin e HCl (PHENERGAN) 25 MG oral Tablet 12-20 00:00: 00 Yes [id number] 25mg Q.25D Take 1 tablet (25 mg total) by mouth every 6 hours as needed Tammy oneill Trazodone HCl 50 MG oral Tablet 12-20 00:00: 00 Yes [id number] 50mg Take 1 tablet (50 mg total) by mouth nightly Tammy oneill Promethazin e HCl (PHENERGAN) 25 MG oral Tablet 06 00:00: 00 01-29 00:00 :00 No [id number] 25mg Q.25D Take 1 tablet (25 mg total) by mouth every 6 hours as needed Tammy oneill Fluticasone -Umeclidin- Vilant 100-62.5-25 MCG/ACT inhalation AEROSOL POWDER, BREATH ACTIVATED 12-10 11:25: 37 12-10 00:00 :00 No 1{puff} 1 puff every 24 hours Tammy oneill hydroCHLORO thiazide 25 MG oral Tablet 12-10 10:53: 22 Yes 1{tbl} Take 1 tablet by mouth every morning Tammy oneill Montelukast (SINGULAIR) 10 MG oral Tablet tablet 12-10 10:53: 22 Yes every 24 hours Tammy oneill Esomeprazol e Magnesium 40 MG oral Delayed Release Capsule 12-10 10:53: 22 Yes 40mg Take 40 mg by mouth every morning (before breakfast) Tammy oneill HYDROcodone -Acetaminop hen 10-325 MG oral Tablet 12-10 10:53: 22 Yes 1{tbl} Take 1 tablet by mouth Tammy oneill Albuterol HFA 108 (90 Base) MCG/ACT IN AERS 12-10 00:00: 00 Yes [id number] 2{puff} Q.25D Inhale 2 puffs into the lungs every 6 hours as needed for wheezing or shortness of breath Tammy oneill Azithromyci n (Zithromax Z-Vincent) 250 MG oral Tablet 12-10 00:00: 00 Yes [id number] Take 2 tablets by mouth on day 1 then 1 tablet by mouth daily for 4 days thereafter . Tammy oneill Albuterol-I pratropium 0.5-2.5 (3) MG/3ML inhalation Solution 12-10 00:00: 00 Yes [id number] 2.5mg Inhale 3 mL (2.5 mg total) into the lungs every 6 (six) hours Tammy oneill Azithromyci n (Zithromax Z-Vincent) 250 MG oral Tablet 12-10 00:00: 00 Yes Take 2 tablets by mouth on day 1 then 1 tablet by mouth daily for 4 days thereafter . Tammy Chilelold - Externa l Albuterol-I pratropium 0.5-2.5 (3) MG/3ML inhalation Solution 12-10 00:00: 00 Yes [id number] 2.5mg Inhale 3 mL (2.5 mg total) into the lungs every 6 (six) hours Tammy Seybold - Externa l Nebulizers (InnoSpire Essence Nebulizer) does not apply Misc 12-10 00:00: 00 Yes See Admin Instructio ns Tammy Estesybold - Externa l Azithromyci n (Zithromax Z-Vincent) 250 MG oral Tablet 12-10 00:00: 00 Yes [id number] Take 2 tablets by mouth on day 1 then 1 tablet by mouth daily for 4 days thereafter . Tammy Seybold - Externa l Albuterol-I pratropium 0.5-2.5 (3) MG/3ML inhalation Solution 12-10 00:00: 00 Yes [id number] 2.5mg Inhale 3 mL (2.5 mg total) into the lungs every 6 (six) hours Tammy Seybold - Externa l Nebulizers (InnoSpire Essence Nebulizer) does not apply Misc 12-10 00:00: 00 Yes See Admin Instructio ns Tammy Estesybold - Externa l Albuterol-I pratropium 0.5-2.5 (3) MG/3ML inhalation Solution 12-10 00:00: 00 Yes [id number] 2.5mg Inhale 3 mL (2.5 mg total) into the lungs every 6 (six) hours Tammy Seybold - Externa l Nebulizers (InnoSpire Essence Nebulizer) does not apply Misc 12-10 00:00: 00 Yes See Admin Instructio ns Tammy Seybold - Externa l Albuterol-I pratropium 0.5-2.5 (3) MG/3ML inhalation Solution 12-10 00:00: 00 Yes [id number] 2.5mg Inhale 3 mL (2.5 mg total) into the lungs every 6 (six) hours Tammy Seybold - Externa l Nebulizers (InnoSpire Essence Nebulizer) does not apply Misc 12-10 00:00: 00 Yes See Admin Instructio ns Tammy Seybold - Externa l Albuterol-I pratropium 0.5-2.5 (3) MG/3ML inhalation Solution 12-10 00:00: 00 Yes [id number] 2.5mg Inhale 3 mL (2.5 mg total) into the lungs every 6 (six) hours Tammy Seybold - Externa l Nebulizers (InnoSpire Essence Nebulizer) does not apply Misc 12-10 00:00: 00 Yes See Admin Instructio ns Tammy Seybold - Externa l Albuterol-I pratropium 0.5-2.5 (3) MG/3ML inhalation Solution 12-10 00:00: 00 Yes [id number] 2.5mg Inhale 3 mL (2.5 mg total) into the lungs every 6 (six) hours Tammy Seybold - Externa l Nebulizers (InnoSpire Essence Nebulizer) does not apply Misc 12-10 00:00: 00 Yes See Admin Instructio ns Tammy Seybold - Externa l Albuterol-I pratropium 0.5-2.5 (3) MG/3ML inhalation Solution 12-10 00:00: 00 Yes [id number] 2.5mg Inhale 3 mL (2.5 mg total) into the lungs every 6 (six) hours Tammy Seybold - Externa l Nebulizers (InnoSpire Essence Nebulizer) does not apply Misc 0 12-10 00:00: 00 Yes See Admin Instructio ns Tammy Seybold - Externa l Albuterol-I pratropium 0.5-2.5 (3) MG/3ML inhalation Solution 12-10 00:00: 00 Yes [id number] 2.5mg Inhale 3 mL (2.5 mg total) into the lungs every 6 (six) hours Tammy oneill Nebulizers (InnoSpire Essence Nebulizer) does not apply [facility] 12-10 00:00: 00 Yes See Admin Instructio ns Tammy oneill Fluticasone -Umeclidin- Vilant (Trelegy Ellipta) 200-62.5-25 MCG/ACT inhalation AEROSOL POWDER, BREATH ACTIVATED 12-10 00:00: 03-11 04:59 :00 No [id number] 1{puff} Inhale 1 puff into the lungs daily Tammy oneill Azithromyci n (Zithromax Z-Vincent) 250 MG oral Tablet 12-10 00:00: 00 01-29 00:00 :00 No [id number] Take 2 tablets by mouth on day 1 then 1 tablet by mouth daily for 4 days thereafter . Tammy oneill predniSONE (DELTASONE) 20 MG oral tablet 12-10 00:00: 00 01-07 00:00 :00 No [id number] 40mg Take 2 tablets (40 mg total) by mouth daily for 5 days Tammy oneill Albuterol HFA 108 (90 Base) MCG/ACT IN AERS 12-10 00:00: 00 01-01 00:00 :00 No [id number] 2{puff} Q.25D Inhale 2 puffs into the lungs every 6 hours as needed for wheezing or shortness of breath Tammy oneill Fluticasone -Umeclidin- Vilant (Trelegy Ellipta) 200-62.5-25 MCG/ACT inhalation AEROSOL POWDER, BREATH ACTIVATED 12-10 00:00: 00 01-01 00:00 :00 No [id number] 1{puff} Inhale 1 puff into the lungs daily Tammy oneill predniSONE (DELTASONE) 20 MG oral tablet 12-10 00:00: 00 12-16 04:59 :00 No [id number] 40mg Take 2 tablets (40 mg total) by mouth daily for 5 days Tammy oneill Benzonatate 100 MG oral Capsule 12-04 14:57: 58 12-04 00:00 :00 No [id number] 100mg Q.46045691 [id number] 3D Take 100 mg by mouth 3 times daily as needed Tammy oneill Esomeprazol e Magnesium 40 MG oral Delayed Release Capsule 12-04 14:32: 03 Yes 40mg Take 40 mg by mouth every morning (before breakfast) Tammy oneill HYDROcodone -Acetaminop hen 10-325 MG oral Tablet 12-04 14:32: 03 Yes 1{tbl} Take 1 tablet by mouth Tammy oneill Fluticasone -Umeclidin- Vilant 100-62.5-25 MCG/ACT inhalation AEROSOL POWDER, BREATH ACTIVATED 12-04 14:32: 03 Yes 1{puff} 1 puff every 24 hours Tammy oneill hydroCHLORO thiazide 25 MG oral Tablet 12-04 14:32: 03 Yes 1{tbl} Take 1 tablet by mouth every morning Tammy oneill Montelukast (SINGULAIR) 10 MG oral Tablet tablet 12-04 14:32: 03 Yes every 24 hours Tammy oneill Trulicity 0.75 MG/0.5ML subcutaneou s Solution Pen-injecto r 12-04 00:00: 00 Yes [id number] .75mg Inject 0.75 mg into the skin once a week Tammy oneill Pseudoeph-B romphen-DM (Bromfed DM) 30-2-10 MG/5ML oral Syrup 12-04 00:00: 00 Yes [id number] 10mL Q.25D Take 10 mL by mouth 4 times daily as needed Tammy oneill Benzonatate 200 MG oral Capsule 12-04 00:00: 00 Yes [id number] 200mg Q.[id number] 3D Take 1 capsule (200 mg total) by mouth 3 times daily as needed for cough Tammy Seybold - Externa l Trulicity 0.75 MG/0.5ML subcutaneou s Solution Pen-injecto r 12-04 00:00: 00 Yes [id number] .75mg Inject 0.75 mg into the skin once a week Tammy Bain Externa l Benzonatate 200 MG oral Capsule 12-04 00:00: 00 Yes [id number] 200mg Q.79942039 [id number] 3D Take 1 capsule (200 mg total) by mouth 3 times daily as needed for cough Tammy Higgins - Externa l Trulicity 0.75 MG/0.5ML subcutaneou s Solution Pen-injecto r 12-04 00:00: 00 Yes [id number] .75mg Inject 0.75 mg into the skin once a week Tammy Bain Externa l Benzonatate 200 MG oral Capsule 12-04 00:00: 00 Yes [id number] 200mg Q.74689257 [id number] 3D Take 1 capsule (200 mg total) by mouth 3 times daily as needed for cough Tammy Bain Externa l Benzonatate 200 MG oral Capsule 12-04 00:00: 00 Yes [id number] 200mg Q.26964348 [id number] 3D Take 1 capsule (200 mg total) by mouth 3 times daily as needed for cough Tammy Higgins - Externa l Trulicity 0.75 MG/0.5ML subcutaneou s Solution Pen-injecto r 12-04 00:00: 00 Yes [id number] .75mg Inject 0.75 mg into the skin once a week Tammy Huertaa l Pseudoeph-B romphen-DM (Bromfed DM) 30-2-10 MG/5ML oral Syrup 12-04 00:00: 00 Yes [id number] 10mL Q.25D Take 10 mL by mouth 4 times daily as needed Tammy Bain Externa l Benzonatate 200 MG oral Capsule 12-04 00:00: 00 Yes [id number] 200mg Q.[id number] 3D Take 1 capsule (200 mg total) by mouth 3 times daily as needed for cough Tammy Higgins - Externa l Benzonatate 200 MG oral Capsule 12-04 00:00: 00 05-08 00:00 :00 No [id number] 200mg Q.57935684 [id number] 3D Take 1 capsule (200 mg total) by mouth 3 times daily as needed for cough Tammy Esteskikaold - Externa l Trulicity 0.75 MG/0.5ML subcutaneou s Solution Pen-injecto r 12-04 00:00: 00 01-29 00:00 :00 No [id number] .75mg Inject 0.75 mg into the skin once a week Tammy Esteskikaymoi - Externa l Nitrofurant oin Monohyd Macro (Macrobid) 100 MG oral Capsule 11-24 00:00: 00 Yes [id number] 100mg Take 1 capsule (100 mg total) by mouth 2 times daily Tammy Esteskikayomi - Externa l Nitrofurant oin Monohyd Macro (Macrobid) 100 MG oral Capsule 11-24 00:00: 00 Yes [id number] 100mg Take 1 capsule (100 mg total) by mouth 2 times daily Tammy Higgins - Externa l Nitrofurant oin Monohyd Macro (Macrobid) 100 MG oral Capsule 11-24 00:00: 00 Yes [id number] 100mg Take 1 capsule (100 mg total) by mouth 2 times daily Tammy Esteskikayomi - Externa l Nitrofurant oin Monohyd Macro (Macrobid) 100 MG oral Capsule 11-24 00:00: 00 Yes [id number] 100mg Take 1 capsule (100 mg total) by mouth 2 times daily Tammy Esteskikayomi - Externa l Nitrofurant oin Monohyd Macro (Macrobid) 100 MG oral Capsule 11-24 00:00: 00 Yes [id number] 100mg Take 1 capsule (100 mg total) by mouth 2 times daily Tammy Estesybold - Externa l Nitrofurant oin Monohyd Macro (Macrobid) 100 MG oral Capsule 11-24 00:00: 00 05-08 00:00 :00 No [id number] 100mg Take 1 capsule (100 mg total) by mouth 2 times daily Tammy oneill Promethazin e HCl (PHENERGAN) 25 MG oral Tablet 11-21 00:00: 00 Yes [id number] 25mg Q.25D Take 1 tablet (25 mg total) by mouth every 6 hours as needed Tammy Bain Externa nino Zolpidem Tartrate 5 MG oral Tablet 11-21 00:00: 00 Yes [id number] 5mg QD Take 1 tablet (5 mg total) by mouth nightly as needed for sleep Tammy oneill Promethazin e HCl (PHENERGAN) 25 MG oral Tablet 11-21 00:00: 00 Yes [id number] 25mg Q.25D Take 1 tablet (25 mg total) by mouth every 6 hours as needed Tammy oneill Zolpidem Tartrate 5 MG oral Tablet 11-21 00:00: 00 Yes [id number] 5mg QD Take 1 tablet (5 mg total) by mouth nightly as needed for sleep Tammy oneill Zolpidem Tartrate 5 MG oral Tablet 11-21 00:00: 00 01-01 00:00 :00 No [id number] 5mg QD Take 1 tablet (5 mg total) by mouth nightly as needed for sleep Tammy oneill Benzonatate 100 MG oral Capsule 11-20 10:57: 56 Yes [id number] 100mg Q.21687597 [id number] 3D Take 100 mg by mouth 3 times daily as needed Tammy oneill Zolpidem Tartrate 10 MG oral Tablet 11-20 10:39: 02 11-20 00:00 :00 No 10mg QD Take 10 mg by mouth nightly as needed Tammy oneill Gabapentin 600 MG oral Tablet 11-20 10:29: 57 11-20 00:00 :00 No 1{tbl} Q.5D Take 1 tablet by mouth 2 times daily as needed Tammy oneill Montelukast (SINGULAIR) 10 MG oral Tablet tablet 11-20 10:22: 25 11-20 00:00 :00 No 1 tablet in the evening Tammy oneill Albuterol HFA 108 (90 Base) MCG/ACT IN AERS 11-20 10:19: 12 11-20 00:00 :00 No 4{puff} Take 4 puffs by mouth 2 times daily Tammy oneill Fluticasone -Umeclidin- Vilant (Trelegy Ellipta) 100-62.5-25 MCG/ACT inhalation AEROSOL POWDER, BREATH ACTIVATED 11-20 10:19: 12 11-20 00:00 :00 No 1 puff Tammy oneill Esomeprazol e Magnesium 40 MG oral Delayed Release Capsule 11-20 10:11: 18 Yes 40mg Take 40 mg by mouth every morning (before breakfast) Tammy oneill HYDROcodone -Acetaminop hen 10-325 MG oral Tablet 11-20 10:11: 18 Yes 1{tbl} Take 1 tablet by mouth Tammy oneill Promethazin e HCl (PHENERGAN) 25 MG oral Tablet 11-20 10:11: 18 Yes 25mg Q.25D Take 25 mg by mouth every 6 hours as needed Tammy oneill Fluticasone -Umeclidin- Vilant (Trelegy Ellipta) 100-62.5-25 MCG/ACT inhalation AEROSOL POWDER, BREATH ACTIVATED 11-20 00:00: 00 Yes [id number] 1{puff} Inhale 1 puff into the lungs daily Tammy oneill Albuterol HFA 108 (90 Base) MCG/ACT IN AERS 11-20 00:00: 00 Yes [id number] 1{puff} Q4H Inhale 1 puff into the lungs every 4 hours as needed for wheezing Tammy oneill Gabapentin 600 MG oral Tablet 11-20 00:00: 00 Yes [id number] 600mg Q.5D Take 1 tablet (600 mg total) by mouth 2 times daily as needed Tammy Seybold - Externa l Zolpidem Tartrate 10 MG oral Tablet 11-20 00:00: 00 Yes [id number] 5mg QD Take 0.5 tablets (5 mg total) by mouth nightly as needed Tammy Huertaa nino Fluticasone -Umeclidin- Vilant (Trelegy Ellipta) 100-62.5-25 MCG/ACT inhalation AEROSOL POWDER, BREATH ACTIVATED 11-20 00:00: 00 Yes [id number] 1{puff} Inhale 1 puff into the lungs daily Tammy Bain Externa l Albuterol HFA 108 (90 Base) MCG/ACT IN AERS 11-20 00:00: 00 Yes [id number] 1{puff} Q4H Inhale 1 puff into the lungs every 4 hours as needed for wheezing Tammy Bain Externa l Gabapentin 600 MG oral Tablet 11-20 00:00: 00 Yes [id number] 600mg Q.5D Take 1 tablet (600 mg total) by mouth 2 times daily as needed Tammy oneill Albuterol HFA 108 (90 Base) MCG/ACT IN AERS 11-20 00:00: 00 Yes [id number] 1{puff} Q4H Inhale 1 puff into the lungs every 4 hours as needed for wheezing Tammy Bain Externa nino Gabapentin 600 MG oral Tablet 11-20 00:00: 00 Yes [id number] 600mg Q.5D Take 1 tablet (600 mg total) by mouth 2 times daily as needed Tammy Huertaa l Albuterol HFA 108 (90 Base) MCG/ACT IN AERS 11-20 00:00: 00 01-01 00:00 :00 No [id number] 1{puff} Q4H Inhale 1 puff into the lungs every 4 hours as needed for wheezing Tammy Bain Externa l Gabapentin 600 MG oral Tablet 11-20 00:00: 00 01-01 00:00 :00 No [id number] 600mg Q.5D Take 1 tablet (600 mg total) by mouth 2 times daily as needed Tammy Bain Externa l Fluticasone -Umeclidin- Vilant (Trelegy Ellipta) 100-62.5-25 MCG/ACT inhalation AEROSOL POWDER, BREATH ACTIVATED 3-07 00:00: 00 12-10 00:00 :00 No [id number] 1{puff} Inhale 1 puff into the lungs daily Tammy Huertaa l ALPRAZolam (XANAX) 1 mg tablet 8 00:00: 00 07-27 00:00 :00 No [facility] traMADOL (ULTRAM) 50 mg tablet 04-11 00:00: 00 07-27 00:00 :00 No [facility] zolpidem (AMBIEN) 10 mg tablet 04-09 00:00: 00 07-27 00:00 :00 No [facility] Immunizations Ordered Immunization Name Filled Immunization Name Date Status Comments Source Pneumococcal Conjugate 15 (Vaxneuvance) 2022-12-04 00:00:00 Completed Tammy Higgins - External Pneumococcal Conjugate 15 (Vaxneuvance) 2022-12-04 00:00:00 Completed Tammy Higgins - External Pneumococcal Conjugate 15 (Vaxneuvance) 2022-12-04 00:00:00 Completed Tammy Higgins - External Pneumococcal Conjugate 15 (Vaxneuvance) 2022-12-04 00:00:00 Completed Tammy Higgins - External Pneumococcal Conjugate 15 (Vaxneuvance) 2022-12-04 00:00:00 Completed Tammy Higgins - External Pneumococcal Conjugate 15 (Vaxneuvance) 2022-12-04 00:00:00 Completed Tammy Higgins - External Pneumococcal Conjugate 15 (Vaxneuvance) 2022-12-04 00:00:00 Completed Tammy Higgins - External Pneumococcal Conjugate 15 (Vaxneuvance) Unknown Completed Tammy Higgins - External Pneumococcal Conjugate 15 (Vaxneuvance) Unknown Completed Tammy Higgins - External Pneumococcal Conjugate 15 (Vaxneuvance) Unknown Completed Tammy Bain External Vital Signs Vital Name Observation Time Observation Value Comments S ource Systolic blood pressure 2023-10-11 16:23:00 122 mm[Hg] Tammy Seybo ld - External Diastolic blood pressure 2023-10-11 16:23:00 82 mm[Hg] Tammy Seybo ld - External Heart rate 2023-10-11 16:23:00 123 /min Kelse y Seybold - External Body temperature 2023-10-11 16:23:00 37 Malou Tammy Seybold - External Respiratory rate 2023-10-11 16:23:00 14 /min Tammy Seybold - External Body height 2023-10-11 16:23:00 149.9 cm Elsa ey Seybold - External Body weight 2023-10-11 16:23:00 92.987 kg Elsa ey Seybold - External BMI 2023-10-11 16:23:00 41.40 kg/m2 Elsa ey Seybold - External Systolic blood pressure 2023-08-29 17:11:00 121 mm[Hg] Tammy Seybo ld - External Diastolic blood pressure 2023-08-29 17:11:00 84 mm[Hg] Tammy Seybo ld - External Heart rate 2023-08-29 17:11:00 115 /min Kelse y Seybold - External Body temperature 2023-08-29 17:11:00 36.33 Malou Tammy Seybold - External Respiratory rate 2023-08-29 17:11:00 18 /min Tammy Seybold - External Body height 2023-08-29 17:11:00 149.9 cm Elsa ey Seybold - External Body weight 2023-08-29 17:11:00 92.987 kg Elsa ey Seybold - External BMI 2023-08-29 17:11:00 41.40 kg/m2 Elsa ey Seybold - External Oxygen saturation in Arterial blood by Pulse oximetry 2023-08-29 17:11:00 86 /min Tammy Seybo ld - External Systolic blood pressure 2023-08-22 16:49:00 162 mm[Hg] Tammy Seybo ld - External Diastolic blood pressure 2023-08-22 16:49:00 88 mm[Hg] Tammy Seybo ld - External Heart rate 2023-08-22 16:49:00 112 /min Kelse y Seybold - External Body temperature 2023-08-22 16:49:00 37.06 Malou Tammy Seybold - External Body height 2023-08-22 16:49:00 149.9 cm Elsa ey Seybold - External Oxygen saturation in Arterial blood by Pulse oximetry 2023-08-22 16:49:00 86 /min Tammy Chilelo ld - External Body temperature 2023-07-27 13:35:[address] [facility] Heart rate 2023-07-27 13:25:00 91 /min [facility] Respiratory rate 2023-07-27 13:25:00 24 /min [facility] Oxygen saturation in Arterial blood by Pulse oximetry 2023-07-27 13:25:00 94 /min [facility] Systolic blood pressure 2023-07-27 13:00:00 122 mm[Hg] [facility] Diastolic blood pressure 2023-07-27 13:00:00 82 mm[Hg] [facility] Body height 2023-07-27 10:31:00 149.9 cm [facility] Body weight 2023-07-27 10:31:00 106 kg [facility] BMI 2023-07-27 10:31:00 47.20 kg/m2 [facility] Body height 2023-05-13 14:22:00 149.9 cm Elsa ey Seybold - External Body weight 2023-05-13 14:22:00 108.41 kg Elsa ey Seybold - External BMI 2023-05-13 14:22:00 48.27 kg/m2 Elsa ey Seybold - External Systolic blood pressure 2023-05-08 21:09:00 122 mm[Hg] Tammy Seybo ld - External Diastolic blood pressure 2023-05-08 21:09:00 70 mm[Hg] Tammy Seybo ld - External Heart rate 2023-05-08 21:09:00 115 /min Kelse y Seybold - External Body temperature 2023-05-08 21:09:00 36.28 Malou Tammy Seybold - External Respiratory rate 2023-05-08 21:09:00 16 /min Tammy Seybold - External Body height 2023-05-08 21:09:00 149.9 cm Elsa ey Seybold - External Body weight 2023-05-08 21:09:00 108.41 kg Elsa ey Seybold - External BMI 2023-05-08 21:09:00 48.27 kg/m2 Elsa ey Seybold - External Oxygen saturation in Arterial blood by Pulse oximetry 2023-05-08 21:09:00 92 /min Tammy Seybo ld - External Systolic blood pressure 2023-01-29 14:57:00 110 mm[Hg] Tammy Seybo ld - External Diastolic blood pressure 2023-01-29 14:57:00 70 mm[Hg] Tammy Seybo ld - External Heart rate 2023-01-29 14:57:00 94 /min Kelse y Seybold - External Body temperature 2023-01-29 14:57:00 36.67 Malou Tammy Seybold - External Respiratory rate 2023-01-29 14:57:00 30 /min Tammy Seybold - External Body height 2023-01-29 14:57:00 149.9 cm Elsa ey Seybold - External Body weight 2023-01-29 14:57:00 103.874 kg Elsa ey Seybold - External BMI 2023-01-29 14:57:00 46.25 kg/m2 Elsa ey Seybold - External Oxygen saturation in Arterial blood by Pulse oximetry 2023-01-29 14:57:00 91 /min Tammy Seybo ld - External Systolic blood pressure 2023-01-07 14:25:00 105 mm[Hg] Tammy Seybo ld - External Diastolic blood pressure 2023-01-07 14:25:00 69 mm[Hg] Tammy Seybo ld - External Heart rate 2023-01-07 14:25:00 86 /min Kelse y Seybold - External Body temperature 2023-01-07 14:25:00 36.89 Malou Tammy Seybold - External Respiratory rate 2023-01-07 14:25:00 18 /min Tammy Seybold - External Body height 2023-01-07 14:25:00 149.9 cm Elsa ey Seybold - External Body weight 2023-01-07 14:25:00 102.059 kg Elsa ey Seybold - External BMI 2023-01-07 14:25:00 45.44 kg/m2 Elsa ey Seybold - External Oxygen saturation in Arterial blood by Pulse oximetry 2023-01-07 14:25:00 90 /min Tammy Seybo ld - External Heart rate 2023-01-01 14:06:00 116 /min Kelse y Seybold - External Body temperature 2023-01-01 14:06:00 36.89 Malou Tammy Seybold - External Body height 2023-01-01 14:06:00 149.9 cm Elsa ey Seybold - External Body weight 2023-01-01 14:06:00 105.235 kg Elsa ey Seybold - External BMI 2023-01-01 14:06:00 46.86 kg/m2 Elsa ey Seybold - External Systolic blood pressure 2022-12-10 16:00:00 113 mm[Hg] Tammy Seybo ld - External Diastolic blood pressure 2022-12-10 16:00:00 78 mm[Hg] Tammy Seybo ld - External Heart rate 2022-12-10 16:00:00 94 /min Kelse y Seybold - External Body temperature 2022-12-10 16:00:00 37.17 Malou Tammy Seybold - External Respiratory rate 2022-12-10 16:00:00 18 /min Tammy Seybold - External Body height 2022-12-10 16:00:00 149.9 cm Elsa ey Seybold - External Body weight 2022-12-10 16:00:00 99.791 kg Elsa ey Seybold - External BMI 2022-12-10 16:00:00 44.43 kg/m2 Elsa ey Seybold - External Oxygen saturation in Arterial blood by Pulse oximetry 2022-12-10 16:00:00 93 /min Tammy Seybo ld - External Systolic blood pressure 2022-12-04 19:27:00 94 mm[Hg] Tammy Seybo ld - External Diastolic blood pressure 2022-12-04 19:27:00 56 mm[Hg] Tammy Seybo ld - External Heart rate 2022-12-04 19:27:00 112 /min Kelse y Seybold - External Body temperature 2022-12-04 19:27:00 36.67 Malou Tammy Seybold - External Body height 2022-12-04 19:27:00 149.9 cm Elsa ey Seybold - External Body weight 2022-12-04 19:27:00 102.967 kg Elsa ey Seybold - External BMI 2022-12-04 19:27:00 45.85 kg/m2 Elsa ey Seybold - External Oxygen saturation in Arterial blood by Pulse oximetry 2022-12-04 19:27:00 96 /min Tammy Seybo ld - External Systolic blood pressure 2022-11-20 16:04:00 106 mm[Hg] Tammy Seybo ld - External Diastolic blood pressure 2022-11-20 16:04:00 64 mm[Hg] Tammy Seybo ld - External Heart rate 2022-11-20 16:04:00 114 /min Kelse y Seybold - External Body temperature 2022-11-20 16:04:00 36.67 Malou Tammy Seybold - External Respiratory rate 2022-11-20 16:04:00 16 /min Tammy Seybold - External Body height 2022-11-20 16:04:00 149.9 cm Elsa ey Seybold - External Body weight 2022-11-20 16:04:00 99.791 kg Elsa ey Seybold - External BMI 2022-11-20 16:04:00 44.43 kg/m2 Elsa ey Seybold - External Oxygen saturation in Arterial blood by Pulse oximetry 2022-11-20 16:04:00 98 /min Tammy Seybo ld - External Procedures Procedure Date / Time Performed Performing Clinician Source ECG- ADULT 2023-10-11 17:25:45 Marta Sanford S eybold - External AC PANEL 20 + LACTIC ACID 2023-07-27 13:03:[address] [facility] RAPID INFLUENZA A/B 2023-07-27 12:37:[address] [facility] COVID-19 (ID NOW RAPID TESTING) 2023-07-27 12:37:[address] [facility] MAGNESIUM 2023-07-27 11:00:00 Tenisha Sosa Un [facility] TROPONIN I 2023-07-27 11:00:00 Brittney MarieJessi cho [facility] THYROID STIMULATING HORMONE 2023-07-27 11:00:[address] [facility] COMP. METABOLIC PANEL (32383) 2023-07-27 11:00:[address] [facility] CBC WITH DIFF 2023-07-27 11:00:00 [facility] 2023-07-27 11:00:[address] [facility] MRSA / MSSA SCREEN BY PCRLATONYA 2023-07-27 11:00:[address] [facility] ANKLE 3V WEIGHT BEARING RIGHT 2023-05-13 14:57:31 Benjamin Edmonds - External TIB/FIB RIGHT 2023-05-10 16:33:00 Marta Sanford - External ANKLE 3V WEIGHT BEARING RIGHT 2023-05-10 16:33:00 Marta Sanford - External Encounters Start Date/Time End Date/Time Encounter Type Admission Type Attending [facility] Facility Care Department Encounter ID Source 2024-02-06 08:55:00 2024-02-06 08:55:00 Outpatient FREDDY JORDAN [id number] Tammy Higgins 2023-11-07 11:00:00 2023-11-07 11:00:00 Outpatient MARTA SANFORD [id number] Tammy Higgins 2023-10-23 00:00:00 2023-10-23 00:00:00 Outpatient MARTA SANFORD [id number] Tammy Higgins 2023-10-22 13:10:00 2023-10-22 13:10:00 Outpatient FREDDY JORDAN [id number] Tammy Higgins 2023-10-22 10:15:00 2023-10-22 10:15:00 [facility]AMMY LION [id number] [facility] 2023-10-12 00:00:00 2023-10-12 00:00:00 Outpatient MARTA SANFORD TAMMY LION [id number] Tammy Seybold 2023-10-11 11:00:00 2023-10-11 11:00:00 Outpatient MARTA SANFORD TAMMY LION [id number] Tammy Seybold 2023-10-11 00:00:00 2023-10-11 00:00:00 Outpatient JULIANFREDDY Shearer TAMMY LION [id number] Tammy Seybold 2023-10-11 00:00:00 2023-10-11 00:00:00 Outpatient PREZASMARCELLA TAMMY LION [id number] Tammy Seybold 2023-10-11 00:00:00 2023-10-11 00:00:00 Outpatient PREZASMARCELLA TAMMY LION [id number] Tammy Seybold 2023-10-08 00:00:00 2023-10-08 00:00:00 Outpatient MARTA SANFORD TAMMY LION [id number] Tammy Seybold 2023-10-08 00:00:00 2023-10-08 00:00:00 Outpatient MARTA SANFORD TAMMY LION [id number] [facility] 2023-10-07 00:00:00 2023-10-07 00:00:00 Outpatient JULIANFREDDY TAMMY LION [id number] Tammy Seybold 2023-10-03 00:00:00 2023-10-03 00:00:00 Outpatient PREZASMARCELLA TAMMY LION [id number] Tammy Seybold 2023-09-26 15:00:00 2023-09-26 15:00:00 Outpatient ERICMARIANNEPASTORDANITA LION [id number] Tammy Seybold 2023-09-26 15:00:00 2023-09-26 15:00:00 Outpatient FAUSTO LEROY [id number] Tammy Seybold 2023-09-26 09:30:00 2023-09-26 09:30:00 Outpatient FAUSTO LEROY [id number] Tammy Higgins 2023-09-26 00:00:00 2023-09-26 00:00:00 Outpatient TAMMY LION [id number] Tammy ybyomi 2023-09-23 00:00:00 2023-09-23 00:00:00 Outpatient VICTOR M, MARTA TAMMY LION [id number] Tammy ybyomi 2023-09-20 00:00:00 2023-09-20 00:00:00 Outpatient HUNDL, MARTA TAMMY LION [id number] Tammy Estesybyomi 2023-09-18 00:00:00 2023-09-18 00:00:00 Outpatient HUNDL, MARTA LION [id number] Tammy Estesybyomi 2023-09-12 08:00:00 2023-09-12 08:00:00 Outpatient HUNDL, MARTA TAMMY LION [id number] Tammy Estesybyomi 2023-09-05 08:10:00 2023-09-05 08:10:00 Outpatient ZAHEER, [facility] TAMMY LION [id number] Tammy Estesybyomi 2023-09-03 00:00:00 2023-09-03 00:00:00 Outpatient HUNDL, MARTA TAMMY LION [id number] Tammy Estesybyomi 2023-09-02 00:00:00 2023-09-02 00:00:00 Outpatient HUNDL, MARTA TAMMY LION [id number] Tammy Estesybyomi 2023-09-02 00:00:00 2023-09-02 00:00:00 Outpatient STUARTL, MARTA LION [id number] Tmamy Seybold 2023-08-30 15:45:00 2023-08-30 15:45:00 Outpatient TAMMY LION [id number] Tammy Seybold 2023-08-30 00:00:00 2023-08-30 00:00:00 Outpatient FAUSTO LEROY [id number] Tammy Seybold 2023-08-29 12:20:00 2023-08-29 12:20:00 Outpatient TAMMY LION [id number] Tammy Higgins 2023-08-29 11:30:00 2023-08-29 11:30:00 Outpatient FAUSTO LEROY TAMMY LION [id number] Tammy Seybyomi 2023-08-28 00:00:00 2023-08-28 00:00:00 Outpatient LILIANA SANFORDJanuary LION [id number] Tammy Seybyomi 2023-08-28 00:00:00 2023-08-28 00:00:00 Outpatient VICTOR M MARTA LION [id number] Tammy Seybold 2023-08-26 14:30:00 2023-08-26 14:30:00 Outpatient FAUSTO LEROY TAMMY LION [id number] Tammy Estesybyomi 2023-08-23 00:00:00 2023-08-23 00:00:00 Outpatient MARTA MARCELLA TAMMY LION [id number] [facility] 2023-08-22 11:45:00 2023-08-22 11:45:00 Outpatient MARIANNE90 TAMMY LION [id number] [facility] 2023-08-22 11:00:00 2023-08-22 11:00:00 Outpatient VICTOR M, MARTA TAMMY LION [id number] Tammy Seybyomi 2023-08-22 00:00:00 2023-08-22 00:00:00 Outpatient TAMMY LION [id number] [facility] 2023-08-15 00:00:00 2023-08-15 00:00:00 Outpatient VICTOR M MARTA LION [id number] Tammy Seybold 2023-08-14 11:00:00 2023-08-14 11:00:00 Outpatient HUNDL, MARTA LION [id number] Tammy Seybold 2023-08-05 00:00:00 2023-08-05 00:00:00 Outpatient HUNDL, MARTA LION [id number] Tammy Seybold 2023-08-02 00:00:00 2023-08-02 00:00:00 Outpatient PREMARCELLA VASQUEZ [id number] Tammy Seybold 2023-08-02 00:00:00 2023-08-02 00:00:00 Outpatient MARCELLA LOZANO [id number] Tammy Seybold 2023-07-31 00:00:00 2023-07-31 00:00:00 Outpatient TAMMY LION [id number] Tammy Higgins 2023-07-29 00:00:00 2023-07-29 00:00:00 Outpatient MARCELLA LOZANO [id number] Tammy Higgins 2023-07-28 00:00:00 2023-07-28 00:00:00 Outpatient TAMMY LION [id number] Tammy Higgins 2023-07-27 04:06:00 2023-07-27 11:54:00 Hospital Encounter Jessi Hopper [facility] [id number] [facility] 2023-07-27 04:06:00 2023-07-27 11:54:00 Inpatient U JESSI HOPPER [facility] [id number] [facility] 2023-07-26 00:00:00 2023-07-26 00:00:00 Outpatient MD TAMMY TREJO [id number] [facility]-24 00:00:00 2023-07-24 00:00:00 Outpatient MARCELLA LOZANO [id number] [facility] 2023-07-16 00:00:00 2023-07-16 00:00:00 Outpatient MARTA SANFORD [id number] Tammy yomi 2023-07-08 00:00:00 2023-07-08 00:00:00 Outpatient PREMARCELLA VASQUEZ [id number] [facility] 2023-07-05 00:00:00 2023-07-05 00:00:00 Outpatient MARTA SANFORD [id number] Tammy dc 2023-06-28 00:00:00 2023-06-28 00:00:00 Outpatient MARTA SANFORD [id number] [facility] 2023-06-28 00:00:00 2023-06-28 00:00:00 Outpatient HUNDL, MARTA LION [id number] [facility] 2023-06-20 00:00:00 2023-06-20 00:00:00 Outpatient MD TAMMY TREJO [id number] [facility] 2023-06-17 10:30:00 2023-06-17 10:30:00 Outpatient HUNDL, MARTA LION [id number] Tammy [facility] 2023-06-15 00:00:00 2023-06-15 00:00:00 Outpatient HUNDL, MARTA LION [id number] Tammy [facility] 2023-06-13 00:00:00 2023-06-13 00:00:00 Outpatient HUNDL, MARTA LION [id number] Tammy [facility] 2023-06-10 10:30:00 2023-06-10 10:30:00 [facility] [id number] [facility]:00:00 2023-06-10 00:00:00 [facility] [id number] [facility]:00:00 2023-06-03 00:00:00 Outpatient HUNDL, MARTA LION [id number] Tammy [facility] 2023-06-02 00:00:00 2023-06-02 00:00:00 Outpatient HUNDL, MARTA LION [id number] [facility] 2023-05-29 09:00:00 2023-05-29 09:00:00 Outpatient HUNDL, MARTA LION [id number] [facility] 2023-05-28 00:00:00 2023-05-28 00:00:00 Outpatient MARCELLA LOZANO [id number] Tammy Seybyomi 2023-05-27 10:00:00 2023-05-27 10:00:00 Outpatient BENJAMIN EDMONDS [id number] Tammy Seybold 2023-05-23 00:00:00 2023-05-23 00:00:00 Outpatient ARLENE, BENJAMIN TAMMY LION [id number] Tammy Estesybold 2023-05-21 00:00:00 2023-05-21 00:00:00 Outpatient PREZAS, MARCELLA TAMMY LION [id number] Tammy ybyomi 2023-05-21 00:00:00 2023-05-21 00:00:00 Outpatient KAWARFAUSTO TAMMY LION [id number] [facility] 2023-05-20 00:00:00 2023-05-20 00:00:00 Outpatient HUNDL, MARTA LION [id number] [facility] 2023-05-20 00:00:00 2023-05-20 00:00:00 Outpatient HUNDL, MARTA LION [id number] [facility] 2023-05-19 00:00:00 2023-05-19 00:00:00 Outpatient HUNDL, MARTA LION [id number] [facility] 2023-05-13 09:40:00 2023-05-13 09:40:00 Outpatient TAMMY LION [id number] [facility] 2023-05-13 09:00:00 2023-05-13 09:00:00 Outpatient ARLENE, BENJAMIN TAMMY LION [id number] [facility] 2023-05-10 00:00:00 2023-05-10 00:00:00 Outpatient PREZAS, MARCELLA TAMMY LION [id number] [facility] 2023-05-09 00:00:00 2023-05-09 00:00:00 Outpatient HUNDL, MARTA LION [id number] Tammy Seybold 2023-05-08 16:30:00 2023-05-08 16:30:00 Outpatient HUNDL, MARTA LION [id number] Tammy Seybold 2023-05-07 00:00:00 2023-05-07 00:00:00 Outpatient HUNDL, MARTA LION [id number] [facility] 2023-04-25 00:00:00 2023-04-25 00:00:00 Outpatient MD TAMMY TREJO [id number] [facility] 2023-04-19 00:00:00 2023-04-19 00:00:00 Outpatient VICTOR M, MARTA LION [id number] Tammy Seybyomi 2023-04-19 00:00:00 2023-04-19 00:00:00 Outpatient PREJOSESMARCELLA [id number] [facility] 2023-04-17 08:00:00 2023-04-17 08:00:00 Outpatient HUNDL, MARTA LION [id number] [facility] 2023-04-17 00:00:00 2023-04-17 00:00:00 Outpatient TAMMY LION [id number] [facility] 2023-04-17 00:00:00 2023-04-17 00:00:00 Outpatient MD TAMMY TREJO [id number] [facility] 2023-04-09 00:00:00 2023-04-09 00:00:00 Outpatient KAWMARIANNEPASTORDANITA LION [id number] [facility] 2023-04-08 00:00:00 2023-04-08 00:00:00 Outpatient VICTOR M, MARTA LION [id number] [facility] 2023-03-29 00:00:00 2023-03-29 00:00:00 Outpatient MARTA SANFORD [id number] Tammy Seybold 2023-03-29 00:00:00 2023-03-29 00:00:00 Outpatient HUNDMARTA Oneill [id number] [facility] 2023-03-11 00:00:00 2023-03-11 00:00:00 Outpatient MARTA SANFORD [id number] Tammy Seybold 2023-03-06 00:00:00 2023-03-06 00:00:00 Outpatient MARTA SANFORD [id number] Tammy Seybold 2023-03-01 00:00:00 2023-03-01 00:00:00 Outpatient PREZAS, MARCELLA TAMMY LION [id number] Tammy ybyomi 2023-03-01 00:00:00 2023-03-01 00:00:00 Outpatient THERESE GILBERT TAMMY LION [id number] Tammy ybyomi 2023-02-26 09:00:00 2023-02-26 09:00:00 Outpatient STUARTNino MARTA LION [id number] Tammy ybyomi 2023-02-06 00:00:00 2023-02-06 00:00:00 Outpatient VICTOR M MARTA LION [id number] Tammy ybyomi 2023-02-05 00:00:00 2023-02-05 00:00:00 Outpatient STUARTNino MARTA LION [id number] [facility] 2023-02-04 10:30:00 2023-02-04 10:30:00 Outpatient FAUSTO LEROY [id number] [facility] 2023-02-04 00:00:00 2023-02-04 00:00:00 Outpatient MD TAMMY TREJO [id number] Tammy ybyomi 2023-01-30 00:00:00 2023-01-30 00:00:00 Outpatient STUARTNino MARTA LION [id number] [facility] 2023-01-29 10:00:00 2023-01-29 10:00:00 Outpatient STUARTNino MARTA LION [id number] [facility] 2023-01-18 00:00:00 2023-01-18 00:00:00 Outpatient MARCELLA LOZANO [facility] [id number] Tammy Seybyomi 2023-01-17 00:00:00 2023-01-17 00:00:00 Outpatient VICTOR M [facility] [id number] Tammy Seybyomi 2023-01-10 00:00:00 2023-01-10 00:00:00 Outpatient FAUSTO LEROY [id number] Tammy Seybyomi 2023-01-07 09:30:00 2023-01-07 09:30:00 Outpatient FAUSTO LEROY [id number] Tammy Seybyomi 2023-01-07 00:00:00 2023-01-07 00:00:00 Outpatient FAUSTO LEROY T[facility]MY [facility] [id number] Tammy Estesybyomi 2023-01-04 00:00:00 2023-01-04 00:00:00 Outpatient VICTOR M [facility] [id number] Tammy ybyomi 2023-01-01 09:00:00 2023-01-01 09:00:00 Outpatient VICTOR M, [facility] [id number] Tammy Seybyomi 2022-12-26 00:00:00 2022-12-26 00:00:00 Outpatient HUNDNino, MARTA LION [id number] Tammy Seybyomi 2022-12-21 00:00:00 2022-12-21 00:00:00 Outpatient VICTOR M [facility] [id number] [facility]22-12-21 00:00:00 2022-12-21 00:00:00 Outpatient PREMARCELLA VASQUEZ [facility] [id number] Tammy Seybyomi 2022-12-20 00:00:00 2022-12-20 00:00:00 Outpatient PREZAS, MARCELLA [facility] [id number] [facility]22-12-20 00:00:00 2022-12-20 00:00:00 Outpatient PREZAS, MARCELLA LION [id number] Tammy Seybold 2022-12-19 10:30:00 2022-12-19 10:30:[address], TECH [facility] [id number] Tammy Seybold 2022-12-19 00:00:00 2022-12-19 00:00:00 Outpatient MD TAMMY TREJO [id number] Tammy Seybold 2022-12-17 11:00:00 2022-12-17 11:00:00 Outpatient T[facility]MY [facility]ION [id number] Tammy Higgins 2022-12-17 10:00:00 2022-12-17 10:00:00 Outpatient PLABPA TAMMY LOIN [id number] Tammy Higgins 2022-12-11 00:00:00 2022-12-11 00:00:00 Outpatient TAMMY LION [id number] Tammy Higgins 2022-12-10 11:00:00 2022-12-10 11:00:00 Outpatient FAUSTO LEROY [id number] Tammy Higgins 2022-12-10 00:00:00 2022-12-10 00:00:00 Outpatient MARTA SANFORD [id number] Tammy Higgins 2022-12-04 14:00:00 2022-12-04 14:00:00 Outpatient MARTA SANFORD [id number] Tammy Higgins 2022-11-26 09:00:00 2022-11-26 09:00:00 Outpatient LABWolf LION [id number] Tammy Higgins 2022-11-24 00:00:00 2022-11-24 00:00:00 Outpatient MARTA SANFORD TAMMY [id number] Tammy Higgins 2022-11-21 00:00:00 2022-11-21 00:00:00 Outpatient [facility] TAMMY [id number] Tammy Higgins 2022-11-20 10:45:00 2022-11-20 10:45:00 Outpatient LAB90 TAMMY LION [id number] Tammy Higgins 2022-11-20 09:30:00 2022-11-20 09:30:00 Outpatient [facility]ART[facility] TAMMY [id number] Tammy Higgins Results Test Description Test Time Test Comments Results Result Co mments Source Tammy Higgins - ExternalAC Panel 20 + Lactic Djvd5391-06-07 13:08:51* Test Item Value Reference Range Interpretation Comme nts PH (test code = 2) 7.24 7.35-7.45 L PCO2 (test code = 8451126353) 70 See_Comment H [Automated messa ge] The system which generated this result transmitted reference range: 35 - 45 mmHg. The reference range was not used to interpret this result as normal/abnormal. PO2 (test code = 4850973305) 208 See_Comment H [Automated messa ge] The system which generated this result transmitted reference range: 80 - 100 mmHg. The reference range was not used to interpret this result as normal/abnormal. HCO3 (test code = 0148576161) 29 See_Comment H [Automated messa ge] The system which generated this result transmitted reference range: 22 - 26 mEq/L. The reference range was not used to interpret this result as normal/abnormal. BE (test code = 5443081389) -0.3 See_Comment [Automated messa ge] The system which generated this result transmitted reference range: -3.0 - 3.0 mEq/L. The reference range was not used to interpret this result as normal/abnormal. THB (test code = 5598191342) 15.5 g/dL 12.0-16.0 %O2HB (test code = 1033535024) 96.4 % 94.0-99.0 %COHB ART (test code = 8589300279) 1.9 % 0.0-1.5 H %METHB ART (test code = 7297659661) 0.5 % 0.4-1.5 VOL%O2 ART (test code = 1525136235) 21.4 % 15.0-23.0 NA (test code = 3453455158) 137 mmol/L 135-145 K+ (test code = 2665544173) 4.6 mmol/L 3.5-5.0 AC CA IONZ (test code = 6443254571) 4.50 mg/dL 4.50-5.30 GLUCOSE (test code = 5931007028) 82 mg/dL 70-110 LACTIC ACID (test code = 6478653810) 1.27 mmol/L 0.50-2.20 Lab Interpretation (test code = 39371-4) Abnormal [facility] Notes Date/Time Note Provider Source 2023-10-11 10:28:07 Klfx8Yk+mtz8eoHOaRzK xjrlQzvLHJCgAD w9jsGygH6bQCBjGmG3ABTkZ5XR0yLR1895 -01-26T10:28:07 Chief ComplaintPatient presents withLeg PainBilateral leg pain and swelling. Feet and ankle pain [place] [address]-6Vplfp NzidFA3345-44-93C55:28:24Nurse NoteTXT1.2.840.303061.1.13.131.2.7 .2.072920|[id number] for patient qwon36594-1Tcwlj NoteLNNARRATIVEFormatted C-CDA narrative textAspirus Wausau Hospital[address] [place], [place] [id number] VIE7789-62-70L05:28:241.2.840.1143 50.1.72.3.15|1.2.840.656156.1.13.1 31.2.7.2.727879_[id number] [facility] 2023-05-13 09:21:54 /bqaWL88MDjxl6o06f cXnVnZ6x3aUOab dJJPyuMB3jBRu4F6n/MxZyevGv8k6S9975 -08-28T09:21:54 Chief Complaint Patient presents with Consultation C/o patient is here for right ankle, present one month ago, hx of injury patient stated she fell down by tripping over a rock, patient dealing with constant pain while trying to walk and dealing with swelling, tx'd iced, elevated, and ibuprofen. BERTA Roque 54426-8Ebogu XrowFZ4451-84-69A28:24:07Nurse NoteTXT1.2.840.932891.1.13.131.2.7 .2.597955|[id number] for patient nsgd61414-7Htoke NoteLNAspirus Wausau Hospital[address] [place], [place] [id number] BTM3147-69-53R69:24:071.2.840.1143 50.1.72.3.15|1.2.840.547016.1.13.1 31.2.7.2.727879_[id number] [facility] 2023-05-10 14:51:41 2zC/j4bRlte/8a/2E/bj uaNB1UGIGjCBBZ W+MUJDuYpffr3fBuyQ7zXX64WjjZs69776 -08-25T14:51:41 Called and advised pt of results and recommendations. Pt verbalized [place] home patient doesn't have walking boots. Called [facility] and spoke with Monica and they were able to get her scheduled for Saturday at [address] Edmonds. Cast tech can for the patient today at for walking boot but patient declined and stated she will wait to be seen on Saturday. 46436-6Yrjqehrd butuIW6891-86-55M37:51:41Progress noteTXT1.2.840.753129.1.13.131.2.7 .2.419477|[id number] for patient [id number] R Bowen RNSUT[facility]ICAL CENTEREPHolmes [facility] [facility] [id number] XOT4790-55-36W59:51:411.2.840.1143 50.1.72.3.15|1.2.840.590434.1.13.1 31.2.7.2.727879_[id number] Edy Sena RN [facility] 2023-05-10 14:37:16 q4bp2PW1WOLpNnR+gErl hw29E9gnteikSn KRVI+IteHbmsT72u26FR+2iH9gPrpM4317 -08-25T14:37:16 Results reviewed and released to [facility].Ankle is fractured. Please assist her in getting an appointment sooner than later. She needs to be in a walking boot. 68477-6Nqjmyjah ozvuLR8943-24-96G72:37:16Progress noteTXT1.2.840.676514.1.13.131.2.7 .2.117808|[id number] for patient cjht49904-4HujvXJQZBQLYSNUBxgvnu-W[id number] GZF8041-22-13R32:37:161.2.840.1143 50.1.72.3.15|1.2.840.099293.1.13.1 31.2.7.2.727879_[id number] [facility] 2023-05-08 16:15:17 jutIOf8pfbLGdVju8vxH JSe4GMwNJ6ebqU 1L92gEnUo3NL+/o5LQiKJTF2LIMMpF3250 -08-23T16:15:17 Chief Complaint Patient presents with Foot Pain Right foot pain, swelling and bruising. She twisted her foot in some gravel about a month or [place] ago[place] [address]-4Euldw DktjVG9613-44-17S41:17:23Nurse NoteTXT1.2.840.356710.1.13.131.2.7 .2.129981|[id number] for patient qzui88770-1Bawyl Note[id number] TCD6350-04-13O19:17:231.2.840.1143 50.1.72.3.15|1.2.840.130969.1.13.1 31.2.7.2.727879_[id number] [facility]"
[2023-10-24] MEDS ORDERED: ASPIRIN 81 MG CHEWABLE TABLET ONE (11:29)
[2023-10-24] MEDS ORDERED: FAMOTIDINE 20 MG/2 ML VIAL IV ONE (11:30)
[2023-10-24] MEDS ORDERED: NA CHLORIDE 0.9% 1,000 ML ONE (11:30)
[2023-10-24] MEDS ORDERED: METHYLPREDNISOLONE 125 MG INJ ONE (12:10)
[2023-10-24] MEDS ORDERED: LEVALBUTEROL 1.25 MG/3 ML NEB ONE ×2 (12:10→16:38)
[2023-10-24] MEDS ORDERED: IPRATROPIUM BROM 0.5MG/2.5ML ONE (12:10)
[2023-10-24] MEDS ORDERED: ENOXAPARIN 100 MG/ML SYR SQ ONE (12:10)
[2023-10-24 12:16] LABS: Absolute Lymphocytes (CBC) 1.7 K/uL (0.7-4.9); Hematocrit 48.1 % (36.0-45.0); MPV 8.1 fL (7.6-11.3); Platelets 186 thou/uL (152-406); RBC Red Blood Cell Count 5.34 M/uL (3.86-4.86)
--- NOTE | 2023-10-24 12:16 | RAD REPORT ---
EXAM DESCRIPTION: Korin Single View10/24/2023 11:53 am CLINICAL HISTORY: Chest pain COMPARISON: 2019 FINDINGS: Possible pulmonary vascular congestion Lungs appear clear of acute infiltrate Heart is borderline enlarged
[2023-10-24 12:32] LABS: Protime INR 1.07
[2023-10-24 13:57] LABS: Specific Gravity 1.012 (1.005-1.030); Urine Bacteria None Seen /HPF (<20); Urine Bilirubin NEGATIVE (Negative); Urine Blood Negative (Negative); Urine Clarity Turbid (Clear); Urine Color Light-Yellow (Yellow); Urine Glucose NEGATIVE (Negative); Urine Protein NEGATIVE (Negative); Urine RBC <5 /HPF (None Seen); Urine Urobilinogen Normal (Normal); Urine pH 6.5 (5.0-7.0)
[2023-10-24 14:16] LABS: ALT/SGPT 20 U/L (13-56); AST/SGOT 13 U/L (15-37); Albumin 3.1 g/dL (3.4-5.0); Alkaline Phosphatase 67 U/L (45-117); BUN Blood Urea Nitrogen 7 mg/dL (7-18); Bicarbonate 28 mEq/L (21-32); Bilirubin Total 0.4 mg/dL (0.2-1.0); Glomerular Filtration Rate 100 ml/min (=/>90); Glucose Level 101 mg/dL (74-106); Lipase 65 U/L (13-75); Magnesium 1.9 mg/dL (1.6-2.4); NT PRO-BNP 2417 pg/mL (<125); Potassium 3.6 mEq/L (3.5-5.1); Sodium Level 139 mEq/L (136-145); Troponin High Sensitivity 16.8 pg/mL (<58.9)
[2023-10-24 14:17] LABS: Bilirubin Direct < 0.1 mg/dL (0-0.2); Bilirubin Indirect, Calculated ND mg/dL (0.2-0.8)
[2023-10-24] MEDS ORDERED: FUROSEMIDE 20 MG/ 2ML VIAL ONE (14:21)
--- NOTE | 2023-10-24 14:36 | RAD REPORT ---
EXAM DESCRIPTION: USExtrem Venous W Compress Bil10/24/2023 2:28 pm CLINICAL HISTORY: Leg pain COMPARISON: none FINDINGS: The common femoral, superficial femoral, greater saphenous, popliteal and posterior tibial veins bilaterally are compressible and demonstrate augmentation. Doppler demonstrates good flow. Grayscale, color and spectral analysis performed on all vessels IMPRESSION: No evidence of deep venous thrombosis involving either lower extremity.
[2023-10-24] MEDS ORDERED: ONDANSETRON 4 MG/2 ML VIAL ONE (15:17)
[2023-10-24] MEDS ORDERED: MORPHINE 4 MG/ML SYR ONE (15:18)
--- NOTE | 2023-10-24 16:28 | ER ---
Nurse's Notes [facility] Name: Anjana Farley Age: 58 yrs Sex: Female : 1965 Arrival Date: 10/24/2023 Time: 11:00 Bed 15 Private MD: Diagnosis: Tobacco abuse counseling;Tobacco use;Cardiomegaly;Combined systolic (congestive) and diastolic (congestive) heart failure;Obesity, unspecified;Essential (primary) hypertension Presentation: 10/24 11:07 Chief complaint: Patient states: SENT BY DR LOZANO FOR CARDIAC ISSUES. Coronavirus bp screen: At this time, the client does not indicate any symptoms associated with coronavirus-19. Ebola Screen: No symptoms or risks identified at this time. Initial Sepsis Screen: Does the patient meet any 2 criteria? No. Patient's initial sepsis screen is negative. Does the patient have a suspected source of infection? No. Patient's initial sepsis screen is negative. Risk Assessment: Do you want to hurt yourself or someone else? Patient reports no desire to harm self or others. Onset of symptoms is unknown. 11:07 Method Of Arrival: Ambulatory bp 11:07 Acuity: KATHRINE 3 bp Triage Assessment: 11:11 General: Appears distressed, Behavior is cooperative, appropriate for age, anxious. bp Pain: Complains of pain in chest. Cardiovascular: Rhythm is sinus tachycardia. Historical: - Allergies: 11:11 PENICILLINS; bp - PMHx: 11:11 Chronic obstructive lung disease; Hypertensive disorder; Diabetes mellitus; bp - Immunization history:: Adult Immunizations up to date. - Social history:: Smoking status: Patient reports the use of cigarette tobacco products, denies chronic smoking, but will smoke occasionally. Screenin:15 [facility] ED Fall Risk Assessment (Adult) History of falling in the last 3 months, db including since admission No falls in past 3 months (0 pts) Confusion or Disorientation No (0 pts) Intoxicated or Sedated No (0 pts) Impaired Gait Yes (1 pt) Mobility Assist Device Used Yes (1 pt) Altered Elimination No (0 pt) Score/Fall Risk Level 0 - 2 = Low Risk Oriented to surroundings, Maintained a safe environment. Abuse screen: Denies threats or abuse. Denies injuries from another. Nutritional screening: No deficits noted. Tuberculosis screening: No symptoms or risk factors identified. Assessment: 12:05 Reassessment: Patient and/or family updated on plan of care and expected duration. Pain db level reassessed. Patient is alert, oriented x 3, equal unlabored respirations, skin warm/dry/pink. General: Appears uncomfortable, Behavior is calm, cooperative. Pain: Complains of pain in chest Pain does not radiate. Pain began gradually. 13:15 Reassessment: Patient appears in no apparent distress at this time. Patient and/or db family updated on plan of care and expected duration. Pain level reassessed. Patient is alert, oriented x 3, equal unlabored respirations, skin warm/dry/pink. PT AMBULATORY TO RESTROOM. General: Appears in no apparent distress. comfortable, Behavior is calm, cooperative. Neuro: Level of Consciousness is awake, alert, obeys commands, Oriented to person, place, time, situation, Speech is normal. 13:52 Reassessment: Patient appears in no apparent distress at this time. Patient and/or db family updated on plan of care and expected duration. Pain level reassessed. Patient is alert, oriented x 3, equal unlabored respirations, skin warm/dry/pink. 15:01 Reassessment: PATIENT INITIALLY REFUSED LASIX AND STATED DID NOT WANT IT. PT DID TAKE db LASIX AFTER PROVIDING NEW BRIEF. 15:15 Reassessment: Patient appears in no apparent distress at this time. Patient and/or db family updated on plan of care and expected duration. Pain level reassessed. Patient is alert, oriented x 3, equal unlabored respirations, skin warm/dry/pink. 15:19 Reassessment: Patient appears in no apparent distress at this time. PATIENT TO NUCLEAR db MED VIA WHEELCHAIR. 16:01 Reassessment: PATIENT RETURNED TO ROOM. db 16:40 Reassessment: PATIENT STATES WANTS TO GO HOME AND DOES NOT WANT TO BE ADMITTED. db NOTIFIED DR. CHILDS. PT AMBULATORY WITH WALKER TO RESTROOM. 16:50 Reassessment: WHEN PT REMOVED O2 SATURATION DROPPED TO 86% ON RA. INSTRUCTED PT NOT TO db REMOVE O2. REPLACED O2 NC 5L. PT O2 SATURATION INCREASED TO 94%. 17:20 Reassessment: PT REFUSED NICOTINE PATCH AND STATES WANTS TO LEAVE AND HAVE DC db PAPERWORK. NOTIFIED DR. CHILDS. DR. CHILDS SPOKE WITH PT AND EXPLAINED RISKS AND BENEFITS AND IMPORTANCE OF STAYING. PT STILL REFUSED TO STAY AND STATED WANTS TO LEAVE. 17:34 Reassessment: PT SIGNED AMA PAPERWORK. EDUCATED PATIENT OF RISKS OF LEAVING AND db INSTRUCTED PT TO RETURN IF SYMPTOMS GET WORSE OR DO NOT GET BETTER. PT VERBALIZED UNDERSTANDING BUT STATED DOES NOT WANT TO SPEND THE NIGHT IN THE HOSPITAL. Vital Signs: 11:07 BP 156 / 93; Pulse 118; Resp 24; Temp 98; Pulse Ox 89% on 5 lpm NC; Weight 90.72 kg; bp Height 4 ft. 11 in. ; 12:00 BP 157 / 89; Pulse 83; Resp 18; Pulse Ox 100% on 5 lpm NC; db 13:00 BP 158 / 85; Pulse 90; Resp 20; Pulse Ox 94% on 5 lpm NC; db 14:30 BP 165 / 95; Pulse 96; Resp 18; Pulse Ox 95% on R/A; db 15:00 BP 168 / 126; Pulse 107; Resp 28; Pulse Ox 94% on 5 lpm NC; db 16:00 BP 139 / 89; Pulse 99; Resp 18; Pulse Ox 89% on R/A; db 11:07 Body Mass Index 40.39 (90.72 kg, 149.86 cm) bp 15:00 PT UPSET BECAUSE MAY BE ADMITTED AND STATES WANTS TO GO HOME db 16:00 REPLACED NC 5L BACK ON PT. O2 SATURATION INCREASED INCREASED BACK UP TO 94% db ED Course: 11:01 Patient arrived in ED. im 11:05 Beltran Childs MD is Attending Physician. donnie 11:11 Triage completed. bp 11:12 Arm band placed on. bp 11:45 Missed attempt(s): 22 gauge in right antecubital area. Bleeding controlled, band aid db applied, catheter tip intact. 11:54 XRAY Chest (1 view) In Process Unspecified. EDMS 11:55 EKG done, by ED staff, reviewed by Beltran Childs MD. Inserted saline lock: 20 gauge in db right hand, using aseptic technique. Blood collected. Oxygen administration via nasal cannula \T\ 5L/min. 12:03 Yoselin Parker, RN is Primary Nurse. db 13:50 Patient has correct armband on for positive identification. Bed in low position. Call db light in reach. Side rails up X 1. Provided Education on: MRI. Client placed on continuous cardiac and pulse oximetry monitoring. NIBP monitoring applied. 14:27 US Extremity Venous W Compression Masoud In Process Unspecified. EDMS 16:03 VQ scan (Nuclear Medicine) In Process Unspecified. EDMS 16:26 Vito Garner MD is Hospitalizing Provider. donnie 17:42 IV discontinued, intact, bleeding controlled, No redness/swelling at site. db 17:42 No provider procedures requiring assistance completed. db Administered Medications: 13:04 Discontinued: ns 0.9% 1000 ml IV at 125 ml/hr continuous donnie 11:55 Drug: Aspirin PO Chewable Tablet 162 mg PO once Route: PO; db 11:55 Drug: Famotidine IVP 20 mg IVP once; dilute with 10 mL 0.9% NaCl; give over 2 minutes db Route: IVP; Site: right hand; 11:56 Drug: NS 0.9% IV 1000 ml IV at 125 ml/hr continuous Route: IV; Rate: 125 ml/hr; Site: db right hand; 12:20 Drug: Levalbuterol Inhalation 2.5 mg Inhalation once Route: Inhalation; db 12:20 Drug: Ipratropium Inhalation Aerosol 0.5 mg Inhalation once Route: Inhalation; db 12:23 Drug: MethylPrednisoLONE IVP 125 mg IVP once Route: IVP; Site: right hand; db 12:24 Drug: Enoxaparin Sub-Q 90 mg Sub-Q once Route: Sub-Q; Site: right lower abdomen; db 14:50 Drug: Furosemide IVP 20 mg IVP once; give over 2 minutes Route: IVP; Site: right db antecubital; 15:19 Drug: morphine IVP or IV 4 mg IVP once over 4 mins Route: IVP; Infused Over: 4 mins; db Site: right hand; 15:19 Drug: Ondansetron IVP 4 mg IVP once; over 2 minutes Route: IVP; Site: right hand; db 16:40 Drug: predniSONE PO 40 mg PO once Route: PO; db 16:40 Drug: Levalbuterol Inhalation 1.25 mg Inhalation once Route: Inhalation; db 16:40 Drug: LevOfloxacin PO 500 mg PO once Route: PO; db 17:35 Not Given (Patient Refused): nicoderm cqpatch 21 mg/24 hr 1 patches Transdermal once db Medication: 13:15 VIS not applicable for this client. db Outcome: 16:27 Decision to Hospitalize by Provider. donnie 17:41 AMA AMA form signed db 17:41 Condition: unchanged 17:41 Instructed on AMA AND NEED FOR ADMIT 17:42 Patient left the ED. db Signatures: Dispatcher [employer] Beltran Rodriguez MD MD cha Peltier, Brian, RN RN Yoselin Lafleur RN RN Dana Arteaga
--- NOTE | 2023-10-24 16:28 | EDPHYS ---
Physician Documentation [facility] Name: Anjana Farley Age: 58 yrs Sex: Female : 1965 Arrival Date: 10/24/2023 Time: 11:00 Bed 15 Private MD: ED Physician Beltran Gutierrez HPI: 10/24 11:42 This 58 yrs old Female presents to ER via Ambulatory with complaints of Chest donnie Pain. Historical: - Allergies: 11:11 PENICILLINS; bp - PMHx: 11:11 Chronic obstructive lung disease; Hypertensive disorder; Diabetes mellitus; bp - Immunization history:: Adult Immunizations up to date. - Social history:: Smoking status: Patient reports the use of cigarette tobacco products, denies chronic smoking, but will smoke occasionally. ROS: 11:42 Constitutional: Negative for fever, chills, and weight loss, Eyes: Negative for injury, donnie pain, redness, and discharge, ENT: Negative for injury, pain, and discharge, Neck: Negative for injury, pain, and swelling, Abdomen/GI: Negative for abdominal pain, nausea, vomiting, diarrhea, and constipation, Back: Negative for injury and pain, : Negative for injury, bleeding, discharge, and swelling, MS/Extremity: Negative for injury and deformity, Skin: Negative for injury, rash, and discoloration, Neuro: Negative for headache, weakness, numbness, tingling, and seizure, Psych: Negative for depression, anxiety, suicide ideation, homicidal ideation, and hallucinations, Allergy/Immunology: Negative for hives, rash, and allergies, Endocrine: Negative for neck swelling, polydipsia, polyuria, polyphagia, and marked weight changes, Hematologic/Lymphatic: Negative for swollen nodes, abnormal bleeding, and unusual bruising, 11:42 Cardiovascular: Positive for chest pain, of the chest, 11:42 Respiratory: Positive for cough, shortness of breath, Negative for hemoptysis, Exam: 11:42 Constitutional: This is a well developed, well nourished patient who is awake, alert, donnie and in no acute distress. Head/Face: Normocephalic, atraumatic. Eyes: Pupils equal round and reactive to light, extra-ocular motions intact. Lids and lashes normal. Conjunctiva and sclera are non-icteric and not injected. Cornea within normal limits. Periorbital areas with no swelling, redness, or edema. ENT: Nares patent. No nasal discharge, no septal abnormalities noted. Tympanic membranes are normal and external auditory canals are clear. Oropharynx with no redness, swelling, or masses, exudates, or evidence of obstruction, uvula midline. Mucous membranes moist. Neck: Trachea midline, no thyromegaly or masses palpated, and no cervical lymphadenopathy. Supple, full range of motion without nuchal rigidity, or vertebral point tenderness. No Meningismus. Chest/axilla: Normal chest wall appearance and motion. Nontender with no deformity. No lesions are appreciated. Cardiovascular: Regular rate and rhythm with a normal S1 and S2. No gallops, murmurs, or rubs. Normal PMI, no JVD. No pulse deficits. Abdomen/GI: Soft, non-tender, with normal bowel sounds. No distension or tympany. No guarding or rebound. No evidence of tenderness throughout. Back: No spinal tenderness. No costovertebral tenderness. Full range of motion. Female : Normal external genitalia. Skin: Warm, dry with normal turgor. Normal color with no rashes, no lesions, and no evidence of cellulitis. MS/ Extremity: Pulses equal, no cyanosis. Neurovascular intact. Full, normal range of motion. Neuro: Awake and alert, GCS 15, oriented to person, place, time, and situation. Cranial nerves II-XII grossly intact. Motor strength 5/5 in all extremities. Sensory grossly intact. Cerebellar exam normal. Normal gait. Psych: Awake, alert, with orientation to person, place and time. Behavior, mood, and affect are within normal limits. 11:42 Respiratory: mild respiratory distress is noted, Respirations: no acute changes, Breath sounds: decreased breath sounds, that are mild, rhonchi, that are mild, stridor, is not appreciated, + upper airway congestion. Respiratory rate: 24 11:42 Musculoskeletal/extremity: DVT Exam: No signs of deep vein thrombosis. no pain, no swelling, no tenderness, negative Homans' sign noted on exam, no appreciated bluish discoloration, no erythema, no increased warmth, Vital Signs: 11:07 BP 156 / 93; Pulse 118; Resp 24; Temp 98; Pulse Ox 89% on 5 lpm NC; Weight 90.72 kg; bp Height 4 ft. 11 in. ; 12:00 BP 157 / 89; Pulse 83; Resp 18; Pulse Ox 100% on 5 lpm NC; db 13:00 BP 158 / 85; Pulse 90; Resp 20; Pulse Ox 94% on 5 lpm NC; db 14:30 BP 165 / 95; Pulse 96; Resp 18; Pulse Ox 95% on R/A; db 15:00 BP 168 / 126; Pulse 107; Resp 28; Pulse Ox 94% on 5 lpm NC; db 16:00 BP 139 / 89; Pulse 99; Resp 18; Pulse Ox 89% on R/A; db 11:07 Body Mass Index 40.39 (90.72 kg, 149.86 cm) bp 15:00 PT UPSET BECAUSE MAY BE ADMITTED AND STATES WANTS TO GO HOME db 16:00 REPLACED NC 5L BACK ON PT. O2 SATURATION INCREASED INCREASED BACK UP TO 94% db MDM: 11:05 Patient medically screened. donnie 11:45 HEART Score: History: Slightly Suspicious (0), ECG: Non specific repolarization donnie disturbance / LBTB / PM (1), Age: > 45 and < 65 years (1), Risk Factors: > or = 3 Risk factors for atherosclerotic disease (2), [Hypercholesterolemia] [Hypertension] [Active Smoker] [+ Family HX] [Obesity] Troponin: < or = 1 x Normal Limit (0). The patient was given aspirin in the Emergency Department. YINKA Risk Score: 1 - patient's age is greater or equal to 65 years, 1 - Three or more CAD risk factors, 1- Known CAD, 1 - ASA use in past 7 days, TOTAL SCORE = 4. Data reviewed: vital signs, nurses notes, lab test result(s), EKG, radiologic studies, plain films. Consideration of Admission/Observation Patient was admitted/placed on observation. Escalation of care including admission/observation considered. I considered the following discharge prescriptions or medication management in the emergency department Medications were administered in the Emergency Department. See MAR. Independent interpretation of the following test(s) in the Emergency Department EKG: See my EKG interpretation above. Test considered but Not performed: Ultrasound no 2 d echo. Historians other than the Patient: Daughter/Son: son well informed. Care significantly affected by the following chronic conditions: Diabetes, Hypertension, Chronic Obstructive Pulmonary Disease, Obesity. Counseling: I had a detailed discussion with the patient and/or guardian regarding the historical points, exam findings, and any diagnostic results supporting the discharge/admit diagnosis, the presence of at least one elevated blood pressure reading (>120/80) during this emergency department visit, lab results, radiology results, the need for further work-up and treatment in the hospital. 10/24 11:06 Order name: Basic Metabolic Panel; Complete Time: 14:34 donnie 10/24 11:06 Order name: CBC with Diff; Complete Time: 13:04 [facility] 10/24 11:06 Order name: LFT's; Complete Time: 14:34 [facility] 10/24 11:06 Order name: Magnesium; Complete Time: 14:34 donnie 10/24 11:06 Order name: NT PRO-BNP; Complete Time: 14:34 [facility] 10/24 11:06 Order name: PT-INR; Complete Time: 13:04 [facility] 10/24 11:06 Order name: Troponin HS; Complete Time: 14:34 [facility] 10/24 11:06 Order name: Lipase; Complete Time: 14:34 [facility] 10/24 11:06 Order name: Urinalysis w/ reflexes; Complete Time: 14:14 [facility] 10/24 11:06 Order name: D-Dimer; Complete Time: 13:04 [facility] 10/24 16:58 Order name: Basic Metabolic Panel [facility] 10/24 16:58 Order name: Basic Metabolic Panel [facility] 10/24 16:58 Order name: CBC with Automated Diff [facility] 10/24 16:58 Order name: CBC with Automated Diff [facility] 10/24 16:58 Order name: Troponin High Sensitivity [facility] 10/24 16:58 Order name: Troponin High Sensitivity [facility] 10/24 16:58 Order name: Troponin High Sensitivity [facility] 10/24 16:58 Order name: Troponin High Sensitivity [facility] 10/24 11:06 Order name: XRAY Chest (1 view); Complete Time: 13:04 [facility] 10/24 13:06 Order name: VQ scan (Nuclear Medicine) [facility] 10/24 13:06 Order name: Echo w/ Doppler [facility] 10/24 13:06 Order name: US Extremity Venous W Compression Masoud; Complete Time: 15:56 [facility] 10/24 11:06 Order name: EKG; Complete Time: 11:07 [facility] 10/24 16:58 Order name: CONS Physician Consult [facility] 10/24 11:06 Order name: Cardiac monitoring; Complete Time: 12:04 [facility] 10/24 11:06 Order name: EKG - Nurse/Tech; Complete Time: 12:04 [facility] 10/24 11:06 Order name: IV Saline Lock; Complete Time: 12:04 [facility] 10/24 11:06 Order name: Labs collected and sent; Complete Time: 12:04 [facility] 10/24 11:06 Order name: O2 Per Protocol; Complete Time: 12:04 [facility] 10/24 11:06 Order name: O2 Sat Monitoring; Complete Time: 12: [facility] 10/24 12:31 Order name: Labs - recollect needed: please recollect green top; Complete Time: 13:47 ds4 Administered Medications: 13:04 Discontinued: ns 0.9% 1000 ml IV at 125 ml/hr continuous donnie 11:55 Drug: Aspirin PO Chewable Tablet 162 mg PO once Route: PO; db 11:55 Drug: Famotidine IVP 20 mg IVP once; dilute with 10 mL 0.9% NaCl; give over 2 minutes db Route: IVP; Site: right hand; 11:56 Drug: NS 0.9% IV 1000 ml IV at 125 ml/hr continuous Route: IV; Rate: 125 ml/hr; Site: db right hand; 12:20 Drug: Levalbuterol Inhalation 2.5 mg Inhalation once Route: Inhalation; db 12:20 Drug: Ipratropium Inhalation Aerosol 0.5 mg Inhalation once Route: Inhalation; db 12:23 Drug: MethylPrednisoLONE IVP 125 mg IVP once Route: IVP; Site: right hand; db 12:24 Drug: Enoxaparin Sub-Q 90 mg Sub-Q once Route: Sub-Q; Site: right lower abdomen; db 14:50 Drug: Furosemide IVP 20 mg IVP once; give over 2 minutes Route: IVP; Site: right db antecubital; 15:19 Drug: morphine IVP or IV 4 mg IVP once over 4 mins Route: IVP; Infused Over: 4 mins; db Site: right hand; 15:19 Drug: Ondansetron IVP 4 mg IVP once; over 2 minutes Route: IVP; Site: right hand; db 16:40 Drug: predniSONE PO 40 mg PO once Route: PO; db 16:40 Drug: Levalbuterol Inhalation 1.25 mg Inhalation once Route: Inhalation; db 16:40 Drug: LevOfloxacin PO 500 mg PO once Route: PO; db 17:35 Not Given (Patient Refused): nicoderm cqpatch 21 mg/24 hr 1 patches Transdermal once db Disposition Summary: 10/24/23 16:27 Hospitalization Ordered Notes: Hospitalization Status: Observation donnie Provider: Vito Garner cha Location: Telemetry/MedSurg (observation) donnie Condition: Fair donnie Problem: new donnie Symptoms: have improved donnie Bed/Room Type: Standard donnie Room Assignment: donnie Diagnosis - Tobacco abuse counseling donnie - Tobacco use donnie - Cardiomegaly donnie - Combined systolic (congestive) and diastolic (congestive) heart failure donnie - Obesity, unspecified donnei - Essential (primary) hypertension donnie Forms: - Medication Reconciliation Form donnie - SBAR form donnie - Leadership Thank You Letter donnie Signatures: Dispatcher [employer] EDMS Beltran Gutierrez MD MD cha Swanson, Donovan ds4 Tiago Amezquita, RN RN Yoselin Lafleur RN RN db Corrections: (The following items were deleted from the chart) 13:05 11:42 Arterial Blood Gas+RC.LAB.BRZ ordered. [facility] EDMS
[2023-10-24] MEDS ORDERED: predniSONE 20 MG TAB ONE (16:38)
[2023-10-24] MEDS ORDERED: levoFLOXacin 250 MG TAB ONE (16:39)
--- NOTE | 2023-10-24 16:40 | RAD REPORT ---
EXAM DESCRIPTION: NM - Vent Perfusion VQ Scan - 10/24/2023 4:01 pm CLINICAL HISTORY: Shortness of breath COMPARISON: Chest x-ray October 24, 2023 TECHNIQUE: 15.6 Mci [id number] was administered by inhalation. First breath, equilibrium, and washout images of the lungs obtained 7 millicuries Technetium-99 MAA was administered intravenously. Anterior, posterior, lateral and obli que views of the lungs were taken. FINDINGS: Mild inhomogeneity radiotracer involving the lungs which is matched on ventilation and per fusion sequences No mismatched segmental or lobar perfusion defects are seen. IMPRESSION: Patient has a low probability for a pulmonary embolism
[2023-10-24] MEDS ORDERED: ACETAMINOPHEN 500 MG TAB PO PRN (16:52)
[2023-10-24] MEDS ORDERED: ALPRAZOLAM 0.25 MG TABLET PO PRN (16:52)
[2023-10-24] MEDS ORDERED: MORPHINE 4 MG/ML SYR IV PRN (16:52)
--- NOTE | 2023-10-24 16:56 | P.HP ---
Certification for Inpatient Patient admitted to: Observation With expected LOS: <2 Midnights Patient will require the following post-hospital care: None Practitioner: I am a practitioner with admitting privileges, knowledge of patient current condition, hospital course, and medical plan of care. Services: Services provided to patient in accordance with Admission requirements found in Title 42 Section 412.3 of the Code of Federal Regulations Patient History Date of Service: 10/24/23 Reason for admission: CP r/o ACS History of Present Illness: Patient is a 58yo female who presented to the hospital with chest pain. Patient was having chest pain on inspiration. Patient was felt to have a possible pulmonary embolism. Initial troponins and EKG were negative. Patient D-dimer was elevated. VQ scan and venous Doppler have been unremarkable. Will go ahead and monitor patient's troponins, and will get an echocardiogram in the morning. Patient will be ruled out for acute coronary syndrome. As long as there is no wall motion abnormality patient should be able to discharge in the morning. Allergies Penicillins Adverse Reaction (Severe, Verified 03/27/12 12:45) Hives - Past Medical/Surgical History -: COPD -: Hypertension -: Type 2 diabetes Past Surgical History: Patient denies surgical history - Family History Father Family History: Reviewed- Non-Contributory - Social History Smoking Status: Current every day smoker Alcohol use: No CD- Drugs: No Review of Systems 10-point ROS is otherwise unremarkable Physical Examination - Vital Signs Temperature: 98 F (Reviewed) - Physical Exam General: Alert, In no apparent distress, Oriented x3 HEENT: Atraumatic, PERRLA, Mucous membr. moist/pink, EOMI, Sclerae nonicteric Neck: Supple, 2+ carotid pulse no bruit, No LAD, Without JVD or thyroid abnormality Respiratory: Diminished, Expiratory wheezes Cardiovascular: Regular rate/rhythm, Normal S1 S2, Systolic murmur Gastrointestinal: Normal bowel sounds, Soft and benign, Non-distended, No tenderness Musculoskeletal: No clubbing, No swelling, No tenderness Integumentary: No rashes Neurological: Normal gait, Normal speech, Normal strength at 5/5 x4 extr, Normal tone, Sensation intact, Cranial nerves 3-12 intact, Normal affect Lymphatics: No axilla or inguinal lymphadenopathy - Studies Laboratory Data (last 24 hrs) 10/24/23 10/24/23 10/24/23 13:45 11:56 11:56 WBC 6.10 Hgb 16.0 H Hct 48.1 H Plt Count 186 PT 11.8 INR 1.07 Sodium 139 Potassium 3.6 BUN 7 Creatinine 0.70 Glucose 101 Magnesium 1.9 Total Bilirubin 0.4 AST 13 L ALT 20 Alkaline Phosphatase 67 Lipase 65 Assessment & Plan - Problems (Diagnosis) (1) Chest pain, rule out acute myocardial infarction Current Visit: Yes Status: Acute (2) Hypertension Current Visit: Yes Status: Acute (3) Type 2 diabetes mellitus Current Visit: Yes Status: Acute (4) COPD (chronic obstructive pulmonary disease) Current Visit: Yes Status: Acute - Plan -High-sensitivity troponin -Cardiology consultation -Echocardiogram and if workup is negative then outpatient stress test -Repeat EKG -Work-up for other etiologies of cardiac chest pain if troponins remain negative -Lipid profile -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
[2023-10-24 17:18] VITALS: O2SAT 95
[2023-10-24] MEDS ORDERED: NICOTINE 21 MG/PAT TD ONE (17:23)
[2023-10-24] MEDS ORDERED: ENOXAPARIN 40 MG/0.4 ML SQ SCH (18:00)
[2023-10-24 20:33] VITALS: TEMP 98
[2023-10-24] MEDS ORDERED: ATORVASTATIN 40 MG TAB PO SCH (21:00)
[2023-10-24] MEDS ORDERED: METOPROLOL TAR 25 MG TAB PO SCH (21:00)
[2023-10-25] MEDS ORDERED: ASPIRIN EC 81 MG TAB PO SCH (09:00)
[2023-10-25 11:24] VITALS: BP 139/89
== END 2023-10-24 17:34 | disposition left against medical advice (07) ==
LOC: ER 11:00 → ERHOLD 16:52
PROVIDERS: ADMIT Hospitalist; ATTEND Hospitalist
DX: R07.9 Chest pain, unspecified (principal); I10 Essential (primary) hypertension; I50.40 Unspecified combined systolic (congestive) and diastolic (congestive) heart failure; I51.7 Cardiomegaly; E11.9 Type 2 diabetes mellitus without complications; J44.9 Chronic obstructive pulmonary disease, unspecified; F17.210 Nicotine dependence, cigarettes, uncomplicated; E66.9 Obesity, unspecified; Z88.0 Allergy status to penicillin; Z53.29 Procedure and treatment not carried out because of patient's decision for other reasons; Z71.6 Tobacco abuse counseling
CPT/HCPCS: 93005; 85025; 81001; 80048; 36415; 83735; 85610; 85379; 80076; 84484; 83690; 83880; 71045; 93970; 78582; J7512; J1650; J1940; J7614 ×2; J7644; J2930; J2405; J7030; A9558; A9540; G0378